=== PATIENT | male | born 1970 | race Caucasian/White ===

== ENCOUNTER → 2023-11-28 08:15 | Outpatient (REF) | payer BC, SELFPAY ==
[2023-11-28 10:29] LABS: Microalbumin, Random Urine 1.3 mg/dl (0.6-1.7); Microalbumin/creatinine Ratio 4.6 mg/g
[2023-11-28 11:49] LABS: ALT (SGPT) 25 U/L (0-50); AST (SGOT) 30 U/L (17-59); Albumin 4.4 g/dl (3.5-5.0); Alkaline Phosphatase 89 U/L (38-126); Blood Urea Nitrogen 15 mg/dl (9-20); Calcium 9.5 mg/dl (8.4-10.2); Carbon Dioxide 26 mmol/L (22-30); Chloride 105 mmol/L (98-107); Glucose 134 mg/dl (70-99); Sodium 139 mmol/L (135-145); Total Bilirubin 0.8 mg/dl (0.2-1.3); Total Protein 7.3 g/dl (6.3-8.2); eGFR > 60.00
[2023-11-28 12:25] LABS: Glycohemoglobin (HgbA1c) 7.1 % (4.0-5.6)
== END ==
LOC: HWLAB 08:15
PROVIDERS: ATTENDING PHYSICIAN Nurse Practitioner Family
DX: E11.9 Type 2 diabetes mellitus without complications (principal)
CPT/HCPCS: 36415; 80053; 82043; 82570; 83036

== ENCOUNTER → 2024-05-03 09:04 | Outpatient (REF) | payer BC, SELFPAY ==
[2024-05-03 11:43] LABS: % Basophils 0.3 % (0-2); % Eosinophils 1.2 % (0-6); % Immature Granulocytes 0.3 % (0-0.5); % Lymphocytes 21.9 % (20.5-51.1); % Monocytes 8.4 % (1.7-9.3); % Neutrophils 67.9 % (42.2-75.2); Absolute Eosinophils 0.1 10^3/uL (0-0.7); Absolute Lymphocytes 2.2 10^3/uL (1.2-3.4); Absolute Monocytes 0.8 10^3/uL (0.1-0.6); Absolute Neutrophils 6.8 10^3/uL (1.4-6.5); Hemoglobin 14.4 g/dL (13.0-18.0); Mean Corp Hgb Conc. 34.3 g/dL (33.0-37.0); Mean Corpuscular Hgb 27.9 pg (27.0-31.0); Mean Corpuscular Volume 81.2 fL (80.0-94.0); Nucleated Red Blood Cells % 0 % (-); Platelet Count 231 10^3/uL (130-400); Red Blood Cell Count 5.17 10^6/uL (4.70-6.10)
[2024-05-03 11:47] LABS: Blood Urea Nitrogen 18 mg/dl (9-20); Calcium 9.8 mg/dl (8.4-10.2); Carbon Dioxide 27 mmol/L (22-30); Chloride 100 mmol/L (98-107); Glucose 147 mg/dl (70-99); Potassium 4.6 mmol/L (3.5-5.1); Sodium 141 mmol/L (135-145); eGFR > 60.00
[2024-05-03 11:55] LABS: Erythrocyte Sed Rate 28 mm/hour (0-20)
== END ==
LOC: HWLAB 09:04
PROVIDERS: ATTENDING PHYSICIAN Student in an Organized Health Care Education/Training Program; FAMILY PHYSICIAN Nurse Practitioner Family
DX: A69.20 Lyme disease, unspecified (principal)
CPT/HCPCS: 36415; 80048; 85025; 85652; 86140; 86618

== ENCOUNTER 2024-05-06 21:02 | Inpatient (IN) | payer BC, SELFPAY ==
[2024-05-06 16:01] VITALS: BMI 29.8
[2024-05-06 16:03] VITALS: BP 143/86
--- NOTE | 2024-05-06 16:03 | ED.PDOC.TRB ---
ED Provider Triage
-
Patient seen by provider in Triage?: Seen in Triage
Attestation: A medical screening examination has been initiated by a qualified medical provider. Based on the assessment performed at this time, it has been determined that an emergent medical condition may exist and the patient has been informed
that further medical evaluation and possible additional diagnostic testing may be needed.
HPI: 53yoM here with atraumatic bilateral ankle/foot swelling and pain x 10 days. Also c/o bilateral wrist pain. Seen by orthopedics on Monday for the same. Sent for labs and has an MRI scheduled for next month. Here with worsening symptoms. No SOB.
GENERAL: Alert , in no apparent distress
EYE: No visual abnormalities.
NECK: Trachea midline
ENT: No visible abnormalities.
LUNGS: No acute respiratory distress
NEUROLOGICAL: Alert and oriented
SKIN: Skin intact. No visible changes.
MUSCULOSKELETAL: Moving extremities normally
PSYCH: Normal and appropriate interaction.
This is a medical evaluation conducted in person to initiate diagnostic evaluation and provide initial therapeutics. Please see further documentation by the treating clinician.
Will check basic labs and venous duplex.
[2024-05-06 16:37] LABS: % Basophils 0.3 % (0-2); % Eosinophils 1.6 % (0-6); % Immature Granulocytes 0.3 % (0-0.5); % Lymphocytes 26.5 % (20.5-51.1); % Neutrophils 62.3 % (42.2-75.2); Absolute Eosinophils 0.1 10^3/uL (0-0.7); Absolute Lymphocytes 2.3 10^3/uL (1.2-3.4); Absolute Monocytes 0.8 10^3/uL (0.1-0.6); Absolute Neutrophils 5.4 10^3/uL (1.4-6.5); Hematocrit 37.8 % (39.0-52.0); Hemoglobin 13.1 g/dL (13.0-18.0); Mean Corp Hgb Conc. 34.7 g/dL (33.0-37.0); Mean Corpuscular Hgb 28.5 pg (27.0-31.0); Mean Corpuscular Volume 82.2 fL (80.0-94.0); Mean Platelet Volume 9.6 fL (7.4-10.4); Nucleated Red Blood Cells % 0 % (-); Platelet Count 254 10^3/uL (130-400); Red Cell Dist. Width 13.2 % (11.5-14.5); White Blood Cell Count 8.7 10^3/uL (4.8-10.8)
[2024-05-06 16:47] LABS: ALT (SGPT) 76 U/L (0-50); AST (SGOT) 70 U/L (17-59); Albumin 4.4 g/dl (3.5-5.0); Alkaline Phosphatase 183 U/L (38-126); Blood Urea Nitrogen 18 mg/dl (9-20); Calcium 9.5 mg/dl (8.4-10.2); Carbon Dioxide 28 mmol/L (22-30); Chloride 100 mmol/L (98-107); Glucose 113 mg/dl (70-99); Potassium 4.3 mmol/L (3.5-5.1); Sodium 141 mmol/L (135-145); Total Bilirubin 0.5 mg/dl (0.2-1.3); Total Protein 7.5 g/dl (6.3-8.2); eGFR > 60.00
--- NOTE | 2024-05-06 19:55 | ED.GENMED ---
History of Present Illness
General
Chief Complaint: Swelling
Source: patient
Exam Limitations: none
Time Seen by Provider: 05/06/24 18:32
History of Present Illness
History of Present Illness:
This is a 53 year old male that comes in with c/o fever and pain in both feet. States that he started a few days ago with pain in both feet. States that the pain started to go up into the ankles and he started with swelling. States that the Right is
larger then the left. States that he went to a Foot and ankle specialist, Dr. Blackwell on Monday and he was given Doxycycline and Tramadol. States that this is not helping. States that now he has a fever. States that he is slightly nauseated , has
chills with the fever, and a headache with slight Dizziness. Patient states that he feels this is from not eating. Denies any chest pain, SOB, abd pain, vomiting, diarrhea, urinary burning.
Past History
Past History
ED Past Medical History: Hypercholesterolemia and NIDDM; Negative HTN
ED Past Surgical History: None
Social History
Tobacco: Non-smoker
Alcohol: Occasional
Personal:
Living: with family
Review of Systems
Review of Systems
All Other Systems: ROS reviewed and negative except as documented in HPI and ROS
Constitutional: Reports fever and chills
EENT: Reports no symptoms
Respiratory: Reports no symptoms; Denies cough or trouble breathing
Cardiac: Reports no symptoms; Denies chest pain
ABD/GI: Reports nausea; Denies abdominal pain, vomiting or diarrhea
: Reports no symptoms; Denies dysuria, frequency or urgency
Musculoskeletal: Reports other (Bilateral foot pain into ankles. )
Skin: Reports other (Redness ankles and left leg)
Neurological: Reports dizzy (Slight) and headache
Psychiatric: Reports no symptoms
Phy Exam
General Physical Exam
General Presentation: no apparent distress
General age: appears stated age
General Skin: warm and dry
General Habitus: normal
General Mental: alert
General Hydration: dry mucous membranes
ENT Exam
ENT Exam: TM's normal, pharynx normal and neck supple
Eye Exam
Eye Exam: EOMI
Cardiovascular Exam
Cardiovascular Exam: regular rate/rhythm, no murmur and normal peripheral pulses
Pulmonary Exam
Pulmonary Exam: lungs clear, no respiratory distress, no rales, chest non tender, no crackles, no rhonchi, no wheezing and no cough
Gastrointestinal Exam
Gastrointestinal Exam: normal bowel sounds, non tender, soft, no organomegaly, no pulsatile mass and non distended
Musculoskeletal Exam
Musculoskeletal Exam: full ROM and edema (Slight swelling nonpitting)
Skin Exam
Skin Exam: normal color, warm/dry, no petechia and redness (Redness of the medial ankles and left lateral leg with increased warmth)
Psychiatric Exam
Psychiatric Exam: normal mood/affect
Scores
Heart Failure Risk
Heart Failure Risk Score: Not Applicable
Course
Orders/Labs/Results
Orders:
Orders
05/06/24 Dinner
2000 calorie (17 carb) Diabetic
At Your Request: Full Participation
05/06/24 16:13
US Periph Venous LOWER Ext Vinicius Urgent
Comment:
Reason For Exam: swelling to right leg and mild swelling to left
05/06/24 16:18
CHEM 20 [Comprehensive Metabolic Panel] Urgent
Complete Blood Count/With Diff Urgent
Lyme Progressive Urgent
Comment: ADDON
Uric Acid Urgent
Comment: ADDON
05/06/24 19:58
Add On- LAB Urgent
Tests Added?: Urine acid, Lyme Titer
05/06/24 20:01
Acetaminophen [Tylenol] 1,000 mg PO NOW STA
05/06/24 20:03
0.9% Sodium Chloride 1000 ml [Nss] 1,000 ml IV BOLUS
Piperacillin/Tazo 3.375 Gram [Zosyn] 3.375 gram in 50 ml IV NOW
05/06/24 20:28
Admit/Transfer Patient As Directed
Co-Sign Provider:
Level of Care: Inpatient admission
Assign to:: Medical/Surgical
Physician / Group: Htay
Diagnosis: Cellulitis
Reason for Hospitalization: IV abx
Expected length of stay greater than two midnights?: Yes
ELOS- Estimated Length of Stay in days: 3
I certify the patient meets the requirements for IP care: Yes
05/06/24 20:29
Code Status As Directed
Resuscitation Status: Full Code
PRN Pain Medication Management As Directed
May give lesser potent ordered pain med per pt: Yes
preference::
Protocol:: Medication orders for pain may be administered in a
manner that supports deferring to patient preference
when the pt is:
- Requesting an ordered lesser potent pain medication.
Least to most potent pain medications are defined
as: acetaminophen < NSAID < tramadol < opioids
(morphine, oxycodone, hydromorphone).
- Requesting a lesser dose of the same medication IF
ORDERED.
- Requesting a less intrusive route of administration
if both routes are prescribed by the provider (PO <
IV).
05/06/24 20:33
COVID-19 Antigen Urgent
Source: Nasal Swab
Lactic Acid Urgent
Blood Culture Urgent
NICKY Source: Blood/Venous
Specimen Description:
Blood Culture Urgent
NICKY Source: Blood/Venous
Specimen Description:
05/06/24 20:40
MRSA Screen Routine
NICKY Source: Nose
Specimen Description:
05/06/24 22:32
0.9% Sodium Chloride 1000 ml [Nss] 1,000 ml IV 60 mls/hr
Acetaminophen [Tylenol] 650 mg PO Q6HPRN PRN
Dextrose 50%-Water [Dextrose 50% Syringe] 12.5 grams IV [id number] PRN
Glucagon [GlucaGen] 1 mg IM PRN PRN
05/06/24 22:32
Activity As Directed
Activity Level: Out of Bed-Early Mobility
Bedside Glucose Monitoring As Directed
Frequency: AC&HS
Additional Instructions:: Change to q6h if pt on TPN, tube feeding or not eating
Intake/ Output As Directed
Frequency: Per unit guidelines
Vital Signs As Directed
Frequency: Per unit guidelines
DX Deep Vein Thrombosis Video Routine
05/07/24 00:00
CeFAZolin 2 GRAM [Ancef] 2 grams in 10 ml IV Q8H
05/07/24 06:00
Complete Blood Count/No Diff IN AM
Comprehensive Metabolic Panel IN AM
Glycohemoglobin (HgbA1c) IN AM
05/07/24 07:30
Insulin Aspart Corrective Low [Novolog Flexpen-Low Resistance] See Protocol SC AC
05/07/24 18:00
Enoxaparin Sodium [Lovenox] 40 mg SC QPM
Abnormal Lab Results
05/06/24
16:18
RBC 4.60 L 10^6/uL
(4.70-6.10)
Hct 37.8 L %
(39.0-52.0)
Absolute Monos (auto) 0.8 H 10^3/uL
(0.1-0.6)
Glucose 113 H mg/dl
(70-99)
AST 70 H U/L
(17-59)
ALT 76 H U/L
(0-50)
Alkaline Phosphatase 183 H U/L
(38-126)
05/06/24 16:18
05/06/24 16:18
Hyperglycemia, AST/ALT elevation. Alk phos elevation. Lactic acid normal at 1.2
Vital Signs
Initial and Last Documented VS:
Initial Vital Signs
Temp Pulse Resp BP Pulse Ox
100.4 F H 90 16 143/86 98
05/06/24 16:03 05/06/24 16:03 05/06/24 16:03 05/06/24 16:03 05/06/24 16:03
Last Documented Vital Signs
Temp Pulse Resp BP Pulse Ox
98.6 F 81 18 113/70 98
05/06/24 22:46 05/06/24 22:46 05/06/24 22:46 05/06/24 22:46 05/06/24 22:46
MDM/Problems Addressed
Differential Diagnosis Includes:
Cellulitis, Lyme disease, GOUT,
MDM/Problems Addressed:
This is a 53 year old male that comes in with c/o fever and bilateral foot and ankle pain. States that this started last week and he saw a foot and ankle specialist on Monday. Patient was put on Doxycycline and Tramadol for pain but states that he
know has a fever.
Will get labs, US and admit patient.
Chronic conditions affecting care: DM
Acute Exacerbation and/or Progression of Chronic Illness:
NA
*Radiology
Radiology exam reviewed: radiology read reviewed (US=No evidence of deep venous thrombosis of the lower extremities bilaterally. )
*Pulse Oximetry
Patient hypoxic: no
*EKG
Interpreted by ED Provider?: NA
Rate: EKG- N/A
*Testing Specialist Interpretation
Rate: Testing Specialist- N/A
*Critical Care Note
Total Time (30-74mins, 75-104mins- exclusive of procedures): Not Applicable
ED Attending Note
-
Portions of this chart may have been created with voice recognition software.� Occasional wrong word or��sound alike� substitutions may have occurred due to the inherent limitations of voice recognition software.
Discharge Plan
Departure
Patient Disposition: Admit
Date of Disposition: 05/06/24
Time of Disposition: 20:11
Admit to: Med/Surg
Presentation/result/management discussed w/ accepting MD/DO: Hospitalist
Patient with high blood pressure during this ER visit?: Yes
Condition: Good
Discharge Problem:
Cellulitis ankles and left leg
Interventions
Interventions:
*Risk Screen - Suicide Last Done: 05/06/24 16:03
*General Assessment Last Done: 05/06/24 18:30
*Neglect/Abuse Screening Last Done: 05/06/24 16:03
ED- Fall Risk Assessment Last Done: 05/06/24 18:30
*ED COVID-19 Vaccine History Last Done: 05/06/24 18:30
*Nursing Disposition Last Done: 05/06/24 22:27
ED- Cardiac Assessment Last Done: 05/06/24 18:30
ED- Pulmonary Assessment Last Done: 05/06/24 18:30
ED-Skin Assessment Last Done: 05/06/24 18:30
Discharge Date and Time
Discharge Date/Time: 05/06/24 22:27
[2024-05-06 20:08] VITALS: BP 119/71
--- NOTE | 2024-05-06 20:32 | HPS.HSE ---
Family Physician
-
Family Physician: PRAVIN Arriaza
Chief Complaint
-
Lower Extremity Pain and Swelling
History of Present Illness
Patient is a 53 y/o male past medical history of hyperlipidemia and diabetes mellitus who presents with pain and swelling of the lower extremities. Patient reports about 10 days ago he started with pain in the bottoms of his feet when he got out of
bed in the morning. Patient notes he then began with increasing redness and swelling of the lower extremities. He also reports associated fevers, sweats and chills. He was started on doxycycline on Monday and has not noticed much change, and
notes the redness appears to be spreading. He denies any prior history of cellulitis.
Medical History
Past Medical History
Past Medical History: Reports Other
Additional Past Medical History:
Diabetes Mellitus, Type II
Hyperlipidemia
Past Surgical History: Reports None
Social History
Tobacco: Non-smoker
Alcohol: Other (Rare alcohol)
Family History
Family History: Not pertinent
Allergies / Home Medications
Allergies reflects when Allergies were last updated in [facility].
Home Medications with original date entered in [facility]
Allergy/Medication List:
Allergies
Allergy/AdvReac Type Severity Reaction Status Date / Time
NKA - No Known Allergies Allergy Unknown Uncoded 05/06/24 16:12
Home Medications
acetaminophen 325 mg tablet (Tylenol) 650 mg PO Q6HPRN PRN mild pain 05/06/24
doxycycline hyclate 100 mg capsule 100 mg PO BID 05/06/24
metformin 500 mg tablet,extended release 24 hr 1,000 mg PO BID 05/06/24
rosuvastatin 10 mg tablet 10 mg PO HS 05/06/24
tramadol 50 mg tablet 50 mg PO Q8HPRN PRN moderate pain 05/06/24
Review of Systems
-
A 12 point ROS was completed and negative except as noted: Yes
Constitutional: Reports Fever and Chills
Respiratory: Denies Cough or Trouble Breathing
Cardiac: Denies Chest Pain or Palpitations
Abdomen/GI: Denies Abdominal Pain, Nausea or Vomiting
Physical Exam
Vital Signs
Vital Signs
Temp Pulse Resp BP Pulse Ox
102.1 F H 91 18 119/71 100
05/06/24 20:08 05/06/24 20:08 05/06/24 20:08 05/06/24 20:08 05/06/24 20:08
Physical Exam
General: Comfortable and Conversant
HEENT: NormoCephalic and Moist mucous membranes
Respiratory: Clear and Non Labored Respirations
Cardiac: S1/S2 and Regular Rhythm
GI: Soft and Non Tender
Rectal: Deferred by Provider
Musculoskeletal: No Clubbing, No Cyanosis and Other (Edema bilateral ankles, right greater than left)
Skin: Other (Moderate erythema right medial malleolus extending up right pinon; Mild erythema left medial malleolus )
Neuro: Awake, Alert, Oriented and Nonfocal/grossly intact
Psych: Calm
Laboratory Results
-
05/06/24 16:18
05/06/24 16:18
Laboratory Results
Total Bilirubin 0.5 mg/dl (0.2-1.3) 05/06/24 16:18
AST 70 U/L (17-59) H 05/06/24 16:18
ALT 76 U/L (0-50) H 05/06/24 16:18
Alkaline Phosphatase 183 U/L (38-126) H 05/06/24 16:18
Data Reviewed
-
Lab Data: Labs Reviewed by me
Impression/Plan
-
Lower Extremity Cellulitis, Right greater than Left - Failed Outpatient Antibiotics
-Continue Ancef
-Check blood cultures and MRSA screen
Abnormal LFTs, suspect drug related
-Hold Crestor
-Antibiotics changed from doxycycline to Ancef
Diabetes Mellitus, Type II
-Hold metformin
-Check HgbA1c
-Monitor sugars and continue coverage insulin
Hyperlipidemia
-Hold Crestor
DVT proph: Lovenox
Code Status: Full Code
--- NOTE | 2024-05-06 20:39 | W.PN.UPDATE ---
Update Note
Progress Note Update
This note serves as an addendum to the H&P by registered diet technician KERI Marcella MARTINEZ
HPI
53M with Diabetic T2 , HX HTN, HLD seen at ER for evalauation of fever at both leg pain.
- onset is few days ago with pain in both feet with pain radiated to the ankles followed by b/l swelling
- reports Right is larger then the left.
- seen by Vp Dr. Blackwell on Monday and he was given Doxycycline and Tramado but no improvement
- Today new onset of fever. At ER T 102.1
- Hemodynamically stable
- Associated with mildly nauseated, chills with the fever, and a headache
- Reports taking Tyelnol , NSAIDs, Tramadol
- Denies any chest pain, SOB, abd pain, vomiting, diarrhea, urinary burning.
PHX; see above
Reviewed VS: T 102.1 HR 90 BP 120/71
PE
Gen: Not toxic
HEENT: anicteric
Neck: supple
Lungs: CTA
Cor: RRR S1 S2
Abdomen:
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
MS: Redness of the medial ankles and left lateral leg with increased warmth)
Psych: anxious
Data
WCC 8.7
eGFR > 60
AST 70
ALT 76
AKP 183
Pending Covid Ag
BCx times 2 sent
US Periph Venous LOWER Ext Vinicius
No evidence of deep venous thrombosis of the lower extremities bilaterally.
04/03/23 ECHO
Normal biventricular size and systolic function without regional wall motion abnormality. Estimated LVEF 60-65%.
No significant valve disease.
No prior study available for comparison.
NO PRIOR DH and hospitalist admission:
ASSESSMENT & PLAN
Cellulitis Rt Falguni of Diabetics
Associated fever without leucocytosis suspect incipient clinical sepsis
- F/U BCx
- check MRSA screen
- Empiric IV Cefazolin in place of Doxy
- Gentle IV NS
- can have Tylenol PRN for fever
- F/U Temp and WCC
Abnormal elevated transaminitis
- HX NOT suggestive ETOH use disorder
- DDX: Drug induced liver injury due to sepsis vs Fatty liver
- Avoid NSAIDs, Tramadol
- Trend LFTs
- held Crestor
T2DM - last A1C 7.1%
- check A1C
- Held Metformin
- add ISS low
HX HTN: Not on Meds
- Observe BP while inpatient
HX HLD
- Held Crestor due to Abn LFTs
DVT Px: LMWH
Code: Full
IP MS
[2024-05-06] MEDS: TYLENOL 1000 MG PO (20:40)
[2024-05-06] MEDS: NSS 1000 IV ×2 (20:41→23:03)
[2024-05-06] MEDS: ZOSYN 50 IV (20:41)
[2024-05-06 21:00] LABS: Uric Acid 3.5 mg/dl (3.5-8.5)
[2024-05-06 21:01] LABS: Lactic Acid 1.2 mmol/L (0.7-2.0)
[2024-05-06 21:04] LABS: COVID-19 Antigen Negative (Negative)
[2024-05-06 22:46] VITALS: BP 113/70; BMI 30.8
[2024-05-06 23:48] LABS: Glucose - Point of Care 212 mg/dl (70-99)
[2024-05-06] MEDS: ANCEF 10 IV (23:51)
[2024-05-07] MEDS: TYLENOL 650 MG PO ×2 (02:57→09:13)
[2024-05-07 07:33] VITALS: BP 116/70
[2024-05-07] MEDS: ANCEF 10 IV ×2 (07:40→17:52)
[2024-05-07] MEDS: NOVOLOG FLEXPEN-LOW RESISTANCE SC ×2 (07:43→12:49)
[2024-05-07 07:44] LABS: Glucose - Point of Care 120 mg/dl (70-99)
[2024-05-07 07:54] LABS: Hematocrit 33.9 % (39.0-52.0); Hemoglobin 11.6 g/dL (13.0-18.0); Mean Corp Hgb Conc. 34.2 g/dL (33.0-37.0); Mean Corpuscular Hgb 28.4 pg (27.0-31.0); Mean Corpuscular Volume 82.9 fL (80.0-94.0); Mean Platelet Volume 9.9 fL (7.4-10.4); Platelet Count 227 10^3/uL (130-400); Red Blood Cell Count 4.09 10^6/uL (4.70-6.10); Red Cell Dist. Width 13.3 % (11.5-14.5); White Blood Cell Count 6.3 10^3/uL (4.8-10.8)
[2024-05-07 08:28] LABS: ALT (SGPT) 55 U/L (0-50); AST (SGOT) 45 U/L (17-59); Albumin 3.6 g/dl (3.5-5.0); Alkaline Phosphatase 149 U/L (38-126); Blood Urea Nitrogen 16 mg/dl (9-20); Calcium 8.7 mg/dl (8.4-10.2); Carbon Dioxide 28 mmol/L (22-30); Chloride 103 mmol/L (98-107); Estimated Creatinine Clearance 92 ml/min; Glucose 111 mg/dl (70-99); Potassium 4.6 mmol/L (3.5-5.1); Sodium 142 mmol/L (135-145); Total Bilirubin 0.6 mg/dl (0.2-1.3); Total Protein 6.4 g/dl (6.3-8.2); eGFR > 60.00
[2024-05-07 09:38] LABS: Glycohemoglobin (HgbA1c) 6.9 % (4.0-5.6)
--- NOTE | 2024-05-07 10:35 | CM ---
Pt seen at bedside. Pt confirmed that he lives w/ his and four children in a split level home.
Pt does not use any DME, no h/x of SNF/HC.
Pt denies food/housing/transportation insecurities
Pt confirmed that his will transport at d/c.
CM will cont. to follow for additional updates/recommendations
Plan: Anticipated home with no needs
--- NOTE | 2024-05-07 10:45 | W.PN.HOSP.TC ---
Today's Communication/Plan
-
see plan
Assessment / Plan
Assessment / Plan
53M with hx DM 2, HTN, HLD presents to the ER with b/l LE pain and swelling with failure to respond to Doxycycline (prescribed 4 days prior). Febrile to 102.1 in ER.
LE US:
IMPRESSION: No evidence of deep venous thrombosis of the lower extremities bilaterally.
Lower Extremity Cellulitis, Right greater than Left - Failed Outpatient Antibiotics
-Continue Ancef
-F/U blood cultures
-touching base with Dr. Blackwell who will see patient
-LE elevation
Abnormal LFTs, suspect drug related
-Hold Crestor
-Antibiotics changed from doxycycline to Ancef
-monitor liver enzymems - improving today
Diabetes Mellitus, Type II
-Hold metformin
-Check HgbA1c
-Monitor sugars and continue coverage insulin
Hyperlipidemia
-Hold Crestor
DVT proph: Lovenox
Code Status: Full Code
Anticipated Discharge: 24 - 48 hours
Subjective/Interval History
-
Date of Service: May 07, 2024
less pain at rest
pain with ambulating
has some swelling
Objective Data
-
Labs:
Laboratory Results
05/07/24
06:06
WBC 6.3
Hgb 11.6 L
Hct 33.9 L
Plt Count 227
Sodium 142
Potassium 4.6
Chloride 103
Carbon Dioxide 28
BUN 16
Creatinine 1.0
Glucose 111 H
Calcium 8.7
Total Bilirubin 0.6
AST 45
ALT 55 H
Alkaline Phosphatase 149 H
Vital Signs:
Vital Signs
Temp Pulse Resp BP Pulse Ox
97.8 F 65 19 116/70 97
05/07/24 07:33 05/07/24 07:33 05/07/24 07:33 05/07/24 07:33 05/07/24 07:33
I&O
05/06/24 05/07/24 05/08/24
06:59 06:59 06:59
Intake Total 120 / 120
Balance 120 / 120
Review of Systems
-
History Source: Patient
All other systems: Reviewed and negative
Physical Exam
-
General: No Apparent Distress
HEENT: PERRLA
Respiratory: Clear to Auscultation; Negative Wheezes
Cardiac: Regular Rhythm and S1/S2
GI: Soft and Nontender
Musculoskeletal: Other (b/l LE ankle swelling R > L with mild erythema; 5/5 strength ankle flexion and extension )
Neuro: AO x 3
Psych: Agitated
Data Reviewed
-
Diagnostic Radiology: Report Reviewed by me
Labs: Labs Reviewed by me
[2024-05-07 11:37] LABS: Glucose - Point of Care 161 mg/dl (70-99)
[2024-05-07] MEDS: NOVOLOG FLEXPEN-LOW RESISTANCE 1 UNITS SC ×2 (14:37→17:52)
[2024-05-07] MEDS: NSS 1000 IV (14:38)
[2024-05-07 15:19] VITALS: BP 117/75
--- NOTE | 2024-05-07 16:41 | W.PN.UPDATE ---
Update Note
Progress Note Update
Patient seen at bedside B/L Lower extremity cellulitis
-Atypical cellulitis
-Obtain MSK US bilateral lower extremity to rule out collection, discussed MRI would be better study however testing currently down
-Recommend ID consult, possible Rheumatology consult due to poly joint arthralgia
[2024-05-07] MEDS: LOVENOX 40 MG SC (17:52)
[2024-05-07 18:39] LABS: Glucose - Point of Care 130 mg/dl (70-99)
[2024-05-07 21:35] LABS: Glucose - Point of Care 160 mg/dl (70-99)
[2024-05-07 23:20] VITALS: BP 111/76
--- NOTE | 2024-05-08 00:16 | W.PN.UPDATE ---
Update Note
Progress Note Update
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 Patient seen, very upset, states he is getting worse with his symptoms from the time he got admitted, upset he is not given proper information, and that MRI is not done as urgent here. Symptoms
evaluated, reports increasing headache 10/0, chills, neck pain and increase in b/l LE pain. Afebrile, 98.6, 111/70, 77, 97% RA. Information provided based on the provider notes. Will order pain medication, and will address patient concerns to
attending.
[2024-05-08] MEDS: ULTRAM 50 MG PO (00:23)
[2024-05-08] MEDS: ANCEF 10 IV ×4 (00:23→23:26)
[2024-05-08] MEDS: DILAUDID 0.25 MG IV (02:40)
[2024-05-08] MEDS: FLUSH (NSS) 2 FLUSH IV (02:40)
[2024-05-08 06:15] LABS: Hematocrit 38.3 % (39.0-52.0); Hemoglobin 13.1 g/dL (13.0-18.0); Mean Corp Hgb Conc. 34.2 g/dL (33.0-37.0); Mean Corpuscular Volume 81.8 fL (80.0-94.0); Mean Platelet Volume 9.4 fL (7.4-10.4); Platelet Count 277 10^3/uL (130-400); Red Blood Cell Count 4.68 10^6/uL (4.70-6.10); Red Cell Dist. Width 13.2 % (11.5-14.5); White Blood Cell Count 9.1 10^3/uL (4.8-10.8)
[2024-05-08 06:36] LABS: ALT (SGPT) 66 U/L (0-50); AST (SGOT) 62 U/L (17-59); Albumin 4.2 g/dl (3.5-5.0); Alkaline Phosphatase 198 U/L (38-126); Blood Urea Nitrogen 17 mg/dl (9-20); Calcium 9.7 mg/dl (8.4-10.2); Carbon Dioxide 27 mmol/L (22-30); Chloride 101 mmol/L (98-107); Estimated Creatinine Clearance 92 ml/min; Glucose 138 mg/dl (70-99); Potassium 4.7 mmol/L (3.5-5.1); Sodium 141 mmol/L (135-145); Total Bilirubin 0.5 mg/dl (0.2-1.3); Total Protein 7.1 g/dl (6.3-8.2); eGFR > 60.00
[2024-05-08 07:50] VITALS: BP 100/65
[2024-05-08 07:56] LABS: Glucose - Point of Care 146 mg/dl (70-99)
[2024-05-08] MEDS: NOVOLOG FLEXPEN-LOW RESISTANCE SC ×3 (08:12→16:44)
--- NOTE | 2024-05-08 08:41 | W.PN.UPDATE ---
Update Note
Progress Note Update
Mr. Mills is resting comfortably in bed this morning. He does endorse significant frustration regarding his case and lack of communication. We had a long discussion, and I explained that we are waiting further imaging. I assured him we will
keep him updated once we have more information as to when he will be able to undergo musculoskeletal ultrasound of both lower extremities. He reports his pain is waxing and waning, but was very severe overnight. He states he is unable to bear
weight on either of his legs.
Directed exam of bilateral lower extremities reveal mild edema and hue of erythema about both lower legs. Mild tenderness to palpation about the anterolateral aspect of the left pinon. Neurovascularly intact bilaterally.
Bilateral atypical lower extremity cellulitis
-Obtain MSK US bilateral lower extremity to rule out collection, discussed MRI would be better study however testing currently down.
-Recommend ID consult, possible Rheumatology consult due to poly joint arthralgia.
-Continue abx per primary. Currently Ancef.
-Will continue to follow along.
--- NOTE | 2024-05-08 11:04 | PHA.VAN.IN ---
Assessment
- Assessment
Renal Function: Appears similar to baseline
Concomitant Antimicrobials: cefazolin
AUC Dosing Plan
- Dosing Variables
Dosing Weight (kg): 89
Dosing CrCl (ml/min): 92
Vd coefficient (L/kg): 0.7
- Empiric Dosing
Initial / Loading Dose: 2000mg - administration pending
Maintenance Regimen: Vanc 1250mg Q12H starting 05/09 06
Estimated AUC (mcg*h/mL): 527
Estimated Peak (mcg*h/mL): 32.3
Estimated Trough (mcg/ml): 13.8
Estimated Half Life (H): 8.6
- Monitoring
No levels ordered at this time: consider levels in next few days
Pharmacokinetics Vancomycin I
- -
Patient Age: 53
Patient Sex: Male
Vancomycin Day #: 1
Indication: Skin And Soft Tissue
Requesting Provider: Dr. Soto
Pertinent Antimicrobial Allergies:
NKDA
Height / Weight:
Height 5 ft 7 in
Actual Weight 89.018 kg
Pertinent Past Medical History: BMI ~31, DM II
- Vital Signs / Lab Results
Temp Pulse Resp BP Pulse Ox
97.9 F 57 16 100/65 96
05/08/24 07:50 05/08/24 07:50 05/08/24 07:50 05/08/24 07:50 05/08/24 08:00
Lab Results - Hematology
05/06/24 05/07/24 05/08/24
16:18 06:06 05:29
WBC 8.7 6.3 9.1
Lab Results - Chemistry
05/06/24 05/07/24 05/08/24
16:18 06:06 05:29
BUN 18 16 17
Creatinine 0.9 1.0 1.0
Estimated Creat Clear 92 92
Albumin 4.4 3.6 4.2
05/06/24
20:33
Lactic Acid 1.2
Microbiology Results
05/06/24 20:40 MRSA Screen - Final
Nose No Methicillin Resistant Staphylococcus aureus isolated.
05/06/24 20:33 Blood Culture - Preliminary
Blood/Venous No Growth in 24 hours- Final report to follow
05/06/24 20:33 Blood Culture - Preliminary
Blood/Venous No Growth in 24 hours- Final report to follow
--- NOTE | 2024-05-08 11:10 | W.PN.HOSP.TC ---
Today's Communication/Plan
-
see plan
Assessment / Plan
Assessment / Plan
53M with hx DM 2, HTN, HLD presents to the ER with b/l LE pain and swelling with failure to respond to Doxycycline (prescribed 4 days prior). Febrile to 102.1 in ER.
LE US:
IMPRESSION: No evidence of deep venous thrombosis of the lower extremities bilaterally.
Lower Extremity Cellulitis, Right greater than Left - Failed Outpatient Antibiotics
-Continue Ancef
-add on IV Vanc - concern for abscess today
-LE US
-discussed with Dr. Blackwell, keep NPO until US results
-ID consult
-LE elevation
Abnormal LFTs, suspect drug related
-Hold Crestor
-Antibiotics changed from doxycycline to Ancef
-monitor liver enzymes, consider US tomorrow if remains elevated - patient without pain
Diabetes Mellitus, Type II
-Hold metformin
-Check HgbA1c
-Monitor sugars and continue coverage insulin
Hyperlipidemia
-Hold Crestor
DVT proph: Lovenox
Code Status: Full Code
Anticipated Discharge: 24 - 48 hours
Subjective/Interval History
-
Date of Service: May 08, 2024
increasing areas of redness/swelling/pain
pain last night
felt feverish but no fevers
Objective Data
-
Labs:
Laboratory Results
05/08/24
05:29
WBC 9.1
Hgb 13.1
Hct 38.3 L
Plt Count 277 D
Sodium 141
Potassium 4.7
Chloride 101
Carbon Dioxide 27
BUN 17
Creatinine 1.0
Glucose 138 H
Calcium 9.7
Total Bilirubin 0.5
AST 62 H
ALT 66 H
Alkaline Phosphatase 198 H
Vital Signs:
Vital Signs
Temp Pulse Resp BP Pulse Ox
97.9 F 57 16 100/65 96
05/08/24 07:50 05/08/24 07:50 05/08/24 07:50 05/08/24 07:50 05/08/24 08:00
I&O
05/07/24 05/08/24 05/09/24
06:59 06:59 06:59
Intake Total 120 / 120 1140 / 1140
Balance 120 / 120 1140 / 1140
Review of Systems
-
History Source: Patient
All other systems: Reviewed and negative
Physical Exam
-
General: No Apparent Distress
HEENT: PERRLA
Respiratory: Clear to Auscultation; Negative Wheezes
Cardiac: Regular Rhythm and S1/S2
GI: Soft and Nontender
Musculoskeletal: Other (right posterior ankle erythema/swelling/warmth with area of induration more evident on today's exam; also on left posterior calf )
Neuro: AO x 3
Psych: Agitated
Data Reviewed
-
Diagnostic Radiology: Report Reviewed by me
[2024-05-08] MEDS: NSS 1000 IV ×2 (11:20→20:30)
--- NOTE | 2024-05-08 11:32 | PN.CDI ---
CDI
- -
CDI:
Physician Documentation Request
Admit Date: 05/06/24 21:02
Dear Doctor Charles,
Please review the following and provide your response in the progress notes.
Clinical Indicators:
The diagnosis of sepsis was documented on 05/06 H&P update note but is not consistently noted in subsequent documentation.
- 05/06 H&P Update note ' Cellulitis Rt Falguni of Diabetics...Associated fever without leucocytosis suspect incipient clinical sepsis'
- / PN 'Lower Extremity Cellulitis'
- On admission: Tmax 102.1, HR 90s
- IV abx Ancef, Zosyn
- 4L IVF given
Please clarify the following:
____ - Sepsis was present on admission and is now resolved.
____ - Sepsis was present on admission and is still being monitored, evaluated or treated
____ - Sepsis was ruled out
____ - Sepsis is still a likely, suspected, probable diagnosis
____ - Other
Use of terms such as suspected, likely, concern for, or probable (associated with a specific diagnosis that is being evaluated, monitored, or treated as if it exists) are acceptable and can be coded in the inpatient setting, when documented at the
time of discharge.
Thank you,
Sonido Nielsen RN
CDI Specialist
Please use your independent medical judgment in providing your response.
[2024-05-08 11:48] LABS: Glucose - Point of Care 111 mg/dl (70-99)
[2024-05-08] MEDS: VANCOCIN 540 MG IV (11:53)
--- NOTE | 2024-05-08 13:55 | CON.ID ---
Addendum entered and electronically signed by Shy Calero MD 05/08/24 17:40:
I personally performed a history and physical exam of the patient and discussed management with the resident. I reviewed the resident's note and agree with the documented findings and plan of care HPI/CC with the following additions/corrections:
HPI:
Mr Mills is a 53 year old male with history of DM2 who presented here 05/06 for pain and swelling of the bilateral lower extremities and bilateral wrist swelling progressing to fevers and chills. Symptoms began 10 days prior to arrival with pain
in the bottoms of the feet and redness and swelling of both legs. He was seen in podiatry clinic with Dr Blackwell who noted a circular red lesion on the left leg - no known tick bites, he was started on doxcycycline however redness and swelling
persisted and he was referred to the ER
Since arrival here
PAST MEDICAL HISTORY:
1. Diabetes type 2.
2. Hyperlipidemia.
PAST SURGICAL HISTORY: Nonsmoker. Rare alcohol use.
FAMILY HISTORY: Not pertinent.
ALLERGIES: No known drug allergies.
HOME MEDICATIONS:
1. Tylenol.
2. Doxycycline.
3. Metformin.
4. Rosuvastatin.
5. Tramadol.
REVIEW OF SYSTEMS: 10 point ROS reviewed - negative expect as listed in HPI
Vital Signs
Vital Signs
Temp Pulse Resp BP Pulse Ox
102.1 F H 91 18 119/71 100
05/06/24 20:08 05/06/24 20:08 05/06/24 20:08 05/06/24 20:08 05/06/24 20:08
Physical Exam
General: Comfortable
Respiratory: Clear to ascultation
Cardiac: S1/S2 and Regular Rhythm
GI: Soft, nondistended and Non Tender
Musculoskeletal: Edema bilateral ankles, right greater than left
Skin: rash: erythema of the right medial malleolus
Psych: Calm
Labs:
reviewed most notably:
wbc 9.1
hgb 13
plt 277
no L shift on arrival
cr 1.0
a1c 6.9
t bili 0.5
ast 62
alt 66
alk phos 198
US of lower extremity:
Rt: There is a 1.6 x 0.2 x 0.8 cm small fluid collection within the distal medial soft tissues along the right ankle. There is cutaneous thickening which may represent superficial cellulitis.
Lf: No discrete abscess or drainable fluid collection. There is skin thickening within the visualized calf, possible superficial cellulitis.
11/27 colonized with MSSA
05/06 blood cultures x2 no growth to date
05/06 mrsa screen negative
A&P
53 year old male with systemic symptoms, neuropathy, and progressive rash
- agree lyme on the differential
- lyme serology sent
- restart doxycycline
- rash is nonpurulent - continue cefazolin no need for vancomycin
- leg elevated, rash outlined
- follow clinically
Original Note:
Consultation
-
Date/Time Consultation Requested: 05/08/24, 11:07 AM
Date/Time Consultation Performed: 05/08/24-1:56 PM
Requesting Provider: Fatuma Soto MD
Performing Provider: Sophia Denny MD
Reason for Consultation: Cellulitis
Chief Complaint / Past History
History of Present Illness
53 yo male with PMHx significant for diabetes and hyperlipidemia presents to the hospital evaluation of fever and swelling, pain of the lower extremities. His symptoms initially started with pain in the bilateral feet about 10 days prior to the ER
visit his pain was sharp and burning, initially present when he woke up in the morning and got better as he takes few steps, was about 4/10 in intensity and nonradiating. By his pain started worsening, as if his legs were on fire, 8/10 in
intensity, radiating into his ankle and posterior calfs and the pain improved with rest. On 05/03 in the morning he noticed swelling in his posterior calf which prompted him to see podiatry and he was started on doxycycline and tramadol. Despite
taking doxycycline he felt the pain in his bilateral knee joints as well as the wrist joints and subjective fevers which prompted an ER visit on 05/06. Patient denies having any pets, being in [place], and having allergies. He also denies having
chest pain, palpitations, shortness of breath, lightheadedness, dizziness, vomiting, diarrhea, dysuria, urinary frequency, abdominal pain.
Currently he reports of having subjective fevers, occasional nausea, pounding and throbbing headaches, difficulty walking.
Upon arrival to the hospital, patient was found to be febrile-100.4, 100.1 with elevated blood pressure, no tachycardia or tachypnea. His laboratory evaluation-WBC count of 8.7 on 05/06/2020 4-9.1 on 05/08/2024, hemoglobin of 13.1 upon admission
continued to remain stable, platelet count of 254 upon admission. Absolute monocyte count -0.8, HbA1c of 6.9, normal electrolytes, serum creatinine-1.0 on 05/06/2024 that continued to remain stable as of 05/08/2024, elevated transaminases with AST
70, ALT 76, alkaline phosphatase 183. He received 1 dose of Zosyn in the ER before he was admitted, and was started on cefazolin upon admission. Dr. Blackwell, his machine splitter was consulted and noted no improvement in patient's legs, wanted to get an
MRI but had an ultrasound done. Patient got peripheral vascular ultrasound-no evidence for DVT found on it and then patient received ultrasound of his bilateral legs which showed evidence for superficial cellulitis.
As of today he was switched to vancomycin.
Past History
Past Medical History: Other (Diabetes Mellitus, Type II Hyperlipidemia)
Past Surgical History: Other (None)
Allergy History:
No Known Allergies Allergy (Unverified 05/08/24 11:08)
Medications Reviewed: Yes
Social History
Tobacco: Non-Smoker
Alcohol: Occasional
Drug: None
Personal:
Living: With Family
Employment: Employed ([employer]
Family History
Family History: Not Pertinent
Review of Systems
Review of Systems
General: Fever and Chills
Cardiovascular: Negative Chest Pain, Dyspnea or Palpitations
Respiratory: Negative Dyspnea, Cough or Sputum Production
Gasteroenterology: Nausea; Negative Vomiting
Genital / Urological: Negative Dysuria or Flank Pain
Endocrine: Negative Weight Change, Weakness or Fatigue
Musculoskeletal: Joint Pain and Arthralgias
Skin / Hair / Nails: Urticaria
Psychological: Depression
Vital Signs
Temp Pulse Resp BP Pulse Ox
97.9 F 57 16 100/65 96
05/08/24 07:50 05/08/24 07:50 05/08/24 07:50 05/08/24 07:50 05/08/24 08:00
Physical Exam
Physical Exam
Constitutional: Comfortable
Pharynx: Benign
Oral: No Ulcers
Cardiovascular: Regular Rate and S1/S2; Negative Murmur, Rub or Gallop
Pulmonary: Clear; Negative Wheezes, Rales or Rhonchi
Gastrointestinal: Soft, Non Tender, Non Distended and Normal Bowel Sounds
Extremities: Edema, Erythema, Pulses (Palpable dorsalis pedis and posterior tibial pulses bilaterally, 1+.) and Other (Increased edema, erythematous, edematous and warm to touch swelling of about 7 x 5 cm noted on left posterior calf just above the
ankle mortise.)
Skin: Warm and Rash (On the upper torso face and neck noted.)
Psychological: Calm
Lab / Diagnostic Study Results
05/08/24 05:29
05/08/24 05:29
Abs Immat Gran (auto) 0.0 10^3/uL (0-0.05) 05/06/24 16:18
Absolute Neuts (auto) 5.4 10^3/uL (1.4-6.5) 05/06/24 16:18
Absolute Lymphs (auto) 2.3 10^3/uL (1.2-3.4) 05/06/24 16:18
Absolute Monos (auto) 0.8 10^3/uL (0.1-0.6) H 05/06/24 16:18
Absolute Basos (auto) 0.0 10^3/uL (0-0.2) 05/06/24 16:18
Immature Gran % 0.3 % (0-0.5) 05/06/24 16:18
Neutrophils % 62.3 % (42.2-75.2) 05/06/24 16:18
Lymphocytes % 26.5 % (20.5-51.1) 05/06/24 16:18
Monocytes % 9.0 % (1.7-9.3) 05/06/24 16:18
Eosinophils % 1.6 % (0-6) 05/06/24 16:18
Basophils % 0.3 % (0-2) 05/06/24 16:18
Lactic Acid 1.2 mmol/L (0.7-2.0) 05/06/24 20:33
Microbiology Results
Micro:
05/06/24 20:40 MRSA Screen - Final
Nose No Methicillin Resistant Staphylococcus aureus isolated.
05/06/24 20:33 Blood Culture - Preliminary
Blood/Venous No Growth in 24 hours- Final report to follow
05/06/24 20:33 Blood Culture - Preliminary
Blood/Venous No Growth in 24 hours- Final report to follow
Nonvascular lower extremity ultrasound-05/08/2024
Right side-
There is a 1.6 x 0.2 x 0.8 cm small fluid collection within the distal medial soft tissues along the right ankle. There is cutaneous thickening which may represent superficial cellulitis.
Left side-
No discrete abscess or drainable fluid collection. There is skin thickening within the visualized calf, possible superficial cellulitis.
Peripheral vascular ultrasound-05/06/2024-
No evidence for DVT.
Assessment / Plan
Assessment-
Subjective-fever, headaches, inability to bear weight on lower extremities from pain, swelling and erythema.
Objective-no spikes of fever in the ER but otherwise afebrile, blood pressure well-controlled, no tachycardia, no tachypnea. WBC count of 8.7 on 05/06/2020 4-9.1 on 05/08/2024, hemoglobin of 13.1 upon admission continued to remain stable, platelet
count of 254 upon admission. Absolute monocyte count -0.8, HbA1c of 6.9, normal electrolytes, serum creatinine-1.0 on 05/06/2024 that continued to remain stable as of 05/08/2024, elevated transaminases with AST 70, ALT 76, alkaline phosphatase 183.
Ultrasound of lower extremities and peripheral vascular ultrasound as noted above.
Plan-
Blood cultures x 2 obtained at same time showed no growth in first 24 hours.
Currently patient is on vancomycin which is discontinued and patient continues to be on cefazolin-day 3.
Obtain Lyme disease serology, Ehrlichia and Anaplasma PCR.
Obtain inflammatory markers in the am.
Start doxycycline 100 mg twice daily.
--- NOTE | 2024-05-08 14:28 | CM ---
Chart reviewed: Pt complained to physician of being unable to bear weight on both legs.
PT/OT assessment pending for medical tx clarification.
Watch for IV abx
CM will cont. to follow for d/c planning needs.
Plan: Home w/ needs vs home w/o needs vs rehab
[2024-05-08] MEDS: BENADRYL 25 MG IV (15:23)
[2024-05-08 15:53] VITALS: BP 112/70
[2024-05-08 16:43] LABS: Glucose - Point of Care 132 mg/dl (70-99)
[2024-05-08] MEDS: LOVENOX 40 MG SC (17:19)
[2024-05-08] MEDS: TYLENOL 650 MG PO (17:20)
[2024-05-08] MEDS: VIBRAMYCIN 100 MG PO (20:17)
[2024-05-08 21:34] LABS: Glucose - Point of Care 109 mg/dl (70-99)
[2024-05-08 23:25] VITALS: BP 112/71
[2024-05-09 06:29] LABS: % Basophils 0.4 % (0-2); % Eosinophils 2.4 % (0-6); % Immature Granulocytes 0.4 % (0-0.5); % Lymphocytes 26.4 % (20.5-51.1); % Monocytes 7.4 % (1.7-9.3); Absolute Eosinophils 0.2 10^3/uL (0-0.7); Absolute Monocytes 0.6 10^3/uL (0.1-0.6); Absolute Neutrophils 4.8 10^3/uL (1.4-6.5); Hematocrit 37.7 % (39.0-52.0); Hemoglobin 13.2 g/dL (13.0-18.0); Mean Corpuscular Hgb 28.3 pg (27.0-31.0); Mean Corpuscular Volume 80.9 fL (80.0-94.0); Mean Platelet Volume 9.4 fL (7.4-10.4); Nucleated Red Blood Cells % 0 % (-); Platelet Count 264 10^3/uL (130-400); Red Blood Cell Count 4.66 10^6/uL (4.70-6.10); Red Cell Dist. Width 13.2 % (11.5-14.5); White Blood Cell Count 7.6 10^3/uL (4.8-10.8)
[2024-05-09 06:39] LABS: ALT (SGPT) 51 U/L (0-50); AST (SGOT) 49 U/L (17-59); Albumin 3.9 g/dl (3.5-5.0); Alkaline Phosphatase 205 U/L (38-126); Blood Urea Nitrogen 17 mg/dl (9-20); Calcium 9.1 mg/dl (8.4-10.2); Carbon Dioxide 22 mmol/L (22-30); Chloride 104 mmol/L (98-107); Estimated Creatinine Clearance 102 ml/min; Glucose 143 mg/dl (70-99); Potassium 4.7 mmol/L (3.5-5.1); Sodium 139 mmol/L (135-145); Total Bilirubin 0.5 mg/dl (0.2-1.3); Total Protein 6.8 g/dl (6.3-8.2); eGFR > 60.00
[2024-05-09 07:00] VITALS: BP 87/58
[2024-05-09 07:18] LABS: Ferritin 69.3 ng/ml (17.9-464.0)
[2024-05-09 07:25] LABS: Erythrocyte Sed Rate 57 mm/hour (0-20)
[2024-05-09] MEDS: ANCEF 10 IV ×3 (07:30→23:42)
[2024-05-09] MEDS: VIBRAMYCIN 100 MG PO ×2 (07:31→21:26)
[2024-05-09] MEDS: NOVOLOG FLEXPEN-LOW RESISTANCE SC ×3 (07:34→17:15)
[2024-05-09 07:36] LABS: Glucose - Point of Care 136 mg/dl (70-99)
--- NOTE | 2024-05-09 07:53 | W.PN.UPDATE ---
Update Note
Progress Note Update
This morning patient continues with some swelling and discomfort medial aspect bilateral ankles. Right ankle has some erythema. Erythematous area has moved well within the line of demarcation for erythema yesterday. He is afebrile and WBC C
is normal cladySDF72.20 ESR57. Left ankle has minimal discomfort about the medial malleolus while right ankle has a little more discomfort. His ankle motions slightly limited. No calf discomfort. Distal neurovascular was intact. [facility] ultrasound
from yesterday showed no accumulation left lower extremity but cellulitis while the right lower extremity did reveal cellulitis and small fluid accumulation medially measuring 1.6 x 0.2 x 0.8 cm. There seems to be generalized improvement so
suggest he continue with antibiotics and add in warm compresses. I will discuss ultrasound findings with Dr. Blackwell later this morning. I am not sure if he would recommend potentially aspiration of the fluid right ankle and IR or possibly
irrigation and debridement in the operating room.
--- NOTE | 2024-05-09 08:16 | W.PN.ID1 ---
Addendum entered and electronically signed by Shy Calero MD 05/09/24 14:59:
I saw and evaluated the patient. I reviewed the resident�s note and agree with findings and plan as documented in the resident�s note with the following additions/corrections:
SOAP
S: no further documented fevers
BP overall stable
no events overnight
patient feels strongly that he must also have rash on the left ankle because he has some tenderness over the left Achilles tendon with walking. I do not appreciate a rash today when I use a bright light to examine the area. The right ankle rash
persists but is a bit less erythematous to me
O:
VSS
Physical Exam
General: Comfortable
Respiratory: Clear to auscultation
Cardiac: S1/S2 and Regular Rhythm
GI: Soft, nondistended and Non Tender
Skin: rash: erythema of the right medial malleolus remains within borders outlined yesterday - fading, small fluctuant area I suspect is a bursae, a subtle finding, area is warm not hot; L medial malleolus as well minimal edema but no rash or
erythema
Psych: Calm
Labs and imaging reviewed as listed
A&P
53 year old male with systemic symptoms, neuropathy, and progressive rash
- agree lyme on the differential
- lyme serology sent
- c/w doxycycline
- rash is nonpurulent - continue cefazolin
- leg elevated, rash outlined
- MRI was initially planned by podiatry, patient requesting it, ordered
- follow clinically
Original Note:
Date of Service
Date of Service: May 09, 2024
Today's Communication
Continue doxycycline.
Continue cefazolin.
Monitor for clinical improvement.
Assessment / Plan
Assessment-
Subjective-fever, headaches, inability to bear weight on lower extremities from pain, swelling and erythema.
Objective-no spikes of fever in the ER but otherwise afebrile, blood pressure well-controlled, no tachycardia, no tachypnea. WBC count of 8.7 on 05/06/2020 4-7.6 on 05/08/2024, hemoglobin of 13.2 upon admission continued to remain stable, platelet
count of 254 upon admission. Absolute monocyte count -0.8, HbA1c of 6.9, normal electrolytes, serum creatinine-1.0 on 05/06/2024 that continued to remain stable as of 05/08/2024, elevated transaminases with AST 70, ALT 76, alkaline phosphatase 183.
ALP - 205. MSSA nasal colonization in November/2022.
Ultrasound of lower extremities and peripheral vascular ultrasound as noted above.
Plan-
Blood cultures x 2 obtained at same time showed no growth in first 48 hours.
Currently patient is on vancomycin which is discontinued and patient continues to be on cefazolin-day 3.
Obtain Lyme disease serology, Ehrlichia and Anaplasma PCR.
Obtain inflammatory markers in the am.
Start doxycycline 100 mg twice daily.
Chief Complaint
-: Other
Subjective / Review of Systems
Reports to be feeling better if overall but still complains of subjective fevers, headaches, bilateral ankle and heel pain.
Review of Systems: No Chills, Headache, No Pharyngitis, No Cough, No Chest Pain, No Palpitations, No Abdominal Pain, Nausea, No Dysuria, No Joint Pain and No Skin Rash
Vital Signs / Physical Exam
Vital Signs
Vital Signs
Temp Pulse Resp BP Pulse Ox
98.8 F 81 16 112/71 97
05/08/24 23:25 05/08/24 23:25 05/08/24 23:25 05/08/24 23:25 05/09/24 07:30
Physical Exam
Constitutional: Well Developed
Cardiovascular: Regular Rate and S1/S2; Negative Murmur, Rub or Gallop
Pulmonary: Clear; Negative Wheezes, Rales or Rhonchi
Gastrointestinal: Soft, Non Tender, Non Distended and Normal Bowel Sounds
Extremities: Edema (b/l ankle joints, right>left.)
Musculoskeletal: Joint Swelling
Skin: Warm
Neurological: Awake and Alert
Psychological: Calm
Objective Data
Lab Data
Lab Results
05/09/24 05:48
05/09/24 05:48
ESR 57 mm/hour (0-20) H 05/09/24 05:48
Estimated Creat Clear 102 ml/min 05/09/24 05:48
Lactic Acid 1.2 mmol/L (0.7-2.0) 05/06/24 20:33
Total Bilirubin 0.5 mg/dl (0.2-1.3) 05/09/24 05:48
AST 49 U/L (17-59) 05/09/24 05:48
ALT 51 U/L (0-50) H 05/09/24 05:48
Alkaline Phosphatase 205 U/L (38-126) H 05/09/24 05:48
C-Reactive Protein 63.20 mg/L (0.0-10.00) H 05/09/24 05:48
Most recent labs reviewed.
Microbiology: Report Reviewed
Micro Results:
05/06/24 20:33 Blood Culture - Preliminary
Blood/Venous No Growth in 48 hours- Final report to follow
05/06/24 20:33 Blood Culture - Preliminary
Blood/Venous No Growth in 48 hours- Final report to follow
05/06/24 20:40 MRSA Screen - Final
Nose No Methicillin Resistant Staphylococcus aureus isolated.
Nonvascular lower extremity ultrasound-05/08/2024
Right side-
There is a 1.6 x 0.2 x 0.8 cm small fluid collection within the distal medial soft tissues along the right ankle. There is cutaneous thickening which may represent superficial cellulitis.
Left side-
No discrete abscess or drainable fluid collection. There is skin thickening within the visualized calf, possible superficial cellulitis.
Peripheral vascular ultrasound-05/06/2024-
No evidence for DVT.
--- NOTE | 2024-05-09 09:17 | PN.CDI ---
CDI
- -
CDI:
Physician Documentation Request
Admit Date: 05/06/24 21:02
Dear Doctor Charles,
Please review the following and provide your response in the progress notes.
Clinical Indicators:
- 10/2 PN 'Lower Extremity Cellulitis...Failed Outpatient Antibiotics'
- 'Diabetes Mellitus, Type II'
- HgA1c 6.9
Please clarify the relationship between these conditions:
Yes, _cellulitis__ is related to/associated with/due to _diabetes type II__.
No, _cellulitis__ is not related to/associated with/due to _diabetes type II__ but it is due to ___. (Please specify)
Unable to determine
Use of terms such as suspected, likely, concern for, or probable (associated with a specific diagnosis that is being evaluated, monitored, or treated as if it exists) are acceptable and can be coded in the inpatient setting, when documented at the
time of discharge.
Thank you,
Sonido Nielsen RN
CDI Specialist
Please use your independent medical judgment in providing your response.
--- NOTE | 2024-05-09 09:48 | W.PN.HOSP.TC ---
Addendum entered and electronically signed by Fatuma Soto MD 05/09/24 10:30:
sepsis was present on admission and now resolved
unclear if cellulitis related to DM II
Original Note:
Today's Communication/Plan
-
IV Cefazolin
oral doxy
trial of gabapentin
appreciate consultants
Assessment / Plan
Assessment / Plan
53M with hx DM 2, HTN, HLD presents to the ER with b/l LE pain and swelling with failure to respond to Doxycycline (prescribed 4 days prior). Febrile to 102.1 in ER.
LE US:
IMPRESSION: No evidence of deep venous thrombosis of the lower extremities bilaterally.
Lower Extremity Cellulitis, Right greater than Left - Failed Outpatient Antibiotics
-Continue Ancef
-LE US without abscess
-appreciate Podiatry and ID consults
-LE elevation
-resume doxycycline - as this may be lyme
-will trial gabapentin for possible neuropathy contributing to pain
Abnormal LFTs, suspect drug related
-Hold Crestor
-Antibiotics changed from doxycycline to Ancef
-monitor liver enzymes, consider US tomorrow if remains elevated - patient without pain
Diabetes Mellitus, Type II
-Hold metformin
-Check HgbA1c
-Monitor sugars and continue coverage insulin
Hyperlipidemia
-Hold Crestor
DVT proph: Lovenox
Code Status: Full Code
Anticipated Discharge: 24 - 48 hours
Subjective/Interval History
-
Date of Service: May 09, 2024
erythema improved still present medial right ankle
continues to have pain with standing
Objective Data
-
Labs:
Laboratory Results
05/09/24
05:48
WBC 7.6
Hgb 13.2
Hct 37.7 L
Plt Count 264
Sodium 139
Potassium 4.7
Chloride 104
Carbon Dioxide 22
BUN 17
Creatinine 0.9
Glucose 143 H
Calcium 9.1
Total Bilirubin 0.5
AST 49
ALT 51 H
Alkaline Phosphatase 205 H
Vital Signs:
Vital Signs
Temp Pulse Resp BP Pulse Ox
98.7 F 74 16 87/58 97
05/09/24 07:00 05/09/24 07:00 05/09/24 07:00 05/09/24 07:00 05/09/24 07:30
I&O
05/08/24 05/09/24 05/10/24
06:59 06:59 06:59
Intake Total 1140 / 1140 360 / 360 120 / 120
Balance 1140 / 1140 360 / 360 120 / 120
Review of Systems
-
History Source: Patient
All other systems: Reviewed and negative
Physical Exam
-
General: No Apparent Distress
HEENT: PERRLA
Respiratory: Clear to Auscultation; Negative Wheezes
Cardiac: Regular Rhythm and S1/S2
GI: Soft and Nontender
Musculoskeletal: Other (right posterior ankle erythema/swelling/warmth within borders, left calf erythema improved )
Skin: Warm and Dry; Negative Rash
Neuro: AO x 3
Psych: Agitated
Data Reviewed
-
Diagnostic Radiology: Report Reviewed by me
Labs: Labs Reviewed by me
[2024-05-09] MEDS: NEURONTIN 100 MG PO ×3 (09:55→21:26)
--- NOTE | 2024-05-09 12:07 | CM ---
Patient seen at bedside, patient frustrated with lack of clarity regarding next steps. Patient asking for MRI. CM will update physician and nursing. CM will continue to follow for discharge planning needs.
Plan; home with VN vs SNF
[2024-05-09 14:02] LABS: Glucose - Point of Care 104 mg/dl (70-99)
[2024-05-09 14:59] LABS: Lyme Antibody Screen, EIA Negative (Negative)
[2024-05-09 15:00] VITALS: BP 111/71
[2024-05-09 15:03] LABS: Lyme Antibody Screen, EIA Negative (Negative)
[2024-05-09] MEDS: LOVENOX 40 MG SC (17:08)
[2024-05-09 17:14] LABS: Glucose - Point of Care 184 mg/dl (70-99)
[2024-05-09 21:48] LABS: Glucose - Point of Care 126 mg/dl (70-99)
[2024-05-09 22:29] VITALS: BP 119/78
[2024-05-09] MEDS: TYLENOL 650 MG PO (23:42)
[2024-05-10 07:30] VITALS: BP 124/74
[2024-05-10 08:00] LABS: Glucose - Point of Care 145 mg/dl (70-99)
[2024-05-10] MEDS: NOVOLOG FLEXPEN-LOW RESISTANCE SC ×3 (08:20→18:22)
[2024-05-10] MEDS: ANCEF 10 IV ×3 (08:20→23:18)
[2024-05-10] MEDS: NEURONTIN 100 MG PO (08:21)
[2024-05-10] MEDS: VIBRAMYCIN 100 MG PO ×2 (08:21→21:17)
[2024-05-10] MEDS: FLUSH (NSS) 2 FLUSH IV (08:24)
[2024-05-10] MEDS: TYLENOL 650 MG PO (08:26)
--- NOTE | 2024-05-10 09:48 | W.PN.ID1 ---
Addendum entered and electronically signed by Beverly Rosenthal MD 05/10/24 17:10:
I saw and evaluated the patient. I reviewed the resident�s note and agree with findings and plan as documented in the resident�s note.
# R>L ankle edema/pain
# Bilateral wrist pain
# Oval rash on right bimalleolar and left calf
# GONZALEZ
# Fever
# Elevated ESR, CRP
- Lyme screen neg x 3, 05/03, 05/06, 05/08
-Blood cx's neg
- No significant improvement on doxycycline and cefazolin
Other DDX:
Rheumatological/ autoimmune disorder.
-Ordered GAURANG
? Reactive arthritis.
- No preceding GI/ sxs.
- Ordered urine GC/Chlamydia PCR. Of note pt on doxy which may affect interpretation of result.
? Serum sickness like syndrome
- no inciting meds/vaccines identified.
- Recent travel to [facility] in 03/2024. Prodromal phase of acute hep B may manifest as serum-sickness like illness.
Check Hep B serologies.
Also:
Offered HIV universal screening, which pt consented.
Test for syphilis.
Ordered Quantiferon TB Gold Plus.
Original Note:
Date of Service
Date of Service: May 10, 2024
Today's Communication
Continue cefazolin and doxycycline.
Syphilis, QuantiFERON gold, Neisseria, gonorrhea, HIV, GAURANG testing in the a.m..
Assessment / Plan
Assessment-
Subjective-fever, headaches, inability to bear weight on lower extremities from pain, swelling and erythema. Recent history of travel to [facility] return back to 3 weeks ago.
Objective-no spikes of fever in the ER but otherwise afebrile, blood pressure well-controlled, no tachycardia, no tachypnea. WBC count of 8.7 on 05/06/2020 4-7.6 on 05/08/2024, hemoglobin of 13.2 upon admission continued to remain stable, platelet
count of 254 upon admission. Absolute monocyte count -0.8, HbA1c of 6.9, normal electrolytes, serum creatinine-1.0 on 05/06/2024 that continued to remain stable as of 05/08/2024, elevated transaminases with AST 70, ALT 76, alkaline phosphatase 183.
ALP - 205. MSSA nasal colonization in November/2022. Elevated ESR and CRP-60, ESR-50.
Ultrasound of lower extremities and peripheral vascular ultrasound as noted above.
Plan-
Blood cultures x 2 obtained at same time showed no growth in first 48 hours.
Currently patient is on vancomycin which is discontinued and patient continues to be on cefazolin-day 4.
Ehrlichia and Anaplasma PCR pending. Lyme serology negative.
I will obtain syphilis, QuantiFERON gold, Neisseria, gonorrhea, HIV, GAURANG reflex to other autoimmune antibodies. Reviewed this testing with patient as well and patient consented for obtaining these tests verbally.
doxycycline 100 mg twice daily -day 3.
Chief Complaint
-: Other
Subjective / Review of Systems
Anders reports to feel better with no subjective fevers and decreased episodes of headaches.
Review of Systems: No Chills, No Pharyngitis, No Stiff Neck, No Swollen Lymph Nodes, No Cough, No Sputum Production, No Palpitations, No Abdominal Pain, Joint Pain and Skin Rash
Vital Signs / Physical Exam
Vital Signs
Vital Signs
Temp Pulse Resp BP Pulse Ox
98.3 F 71 16 124/74 98
05/10/24 07:30 05/10/24 07:30 05/10/24 07:30 05/10/24 07:30 05/10/24 07:30
Physical Exam
Constitutional: Comfortable
Cardiovascular: Regular Rate and S1/S2; Negative Murmur, Rub or Gallop
Pulmonary: Clear; Negative Wheezes, Rales or Rhonchi
Gastrointestinal: Soft, Non Tender, Non Distended and Normal Bowel Sounds
Extremities: Negative Edema
Musculoskeletal: Joint Swelling (Erythematous swelling of the right ankle greater than the left ankle, huge plaque-like rash on the lateral side of the left leg.)
Skin: Warm
Psychological: Calm
Objective Data
Lab Data
Lab Results
05/09/24 05:48
05/09/24 05:48
ESR 57 mm/hour (0-20) H 05/09/24 05:48
Estimated Creat Clear 102 ml/min 05/09/24 05:48
Lactic Acid 1.2 mmol/L (0.7-2.0) 05/06/24 20:33
Total Bilirubin 0.5 mg/dl (0.2-1.3) 05/09/24 05:48
AST 49 U/L (17-59) 05/09/24 05:48
ALT 51 U/L (0-50) H 05/09/24 05:48
Alkaline Phosphatase 205 U/L (38-126) H 05/09/24 05:48
C-Reactive Protein 63.20 mg/L (0.0-10.00) H 05/09/24 05:48
Most recent labs reviewed.
Microbiology: Report Reviewed
Micro Results:
05/06/24 20:33 Blood Culture - Preliminary
Blood/Venous No Growth in 72 hours- Final report to follow
05/06/24 20:33 Blood Culture - Preliminary
Blood/Venous No Growth in 72 hours- Final report to follow
05/06/24 20:40 MRSA Screen - Final
Nose No Methicillin Resistant Staphylococcus aureus isolated.
Nonvascular lower extremity ultrasound-05/08/2024
Right side-
There is a 1.6 x 0.2 x 0.8 cm small fluid collection within the distal medial soft tissues along the right ankle. There is cutaneous thickening which may represent superficial cellulitis.
Left side-
No discrete abscess or drainable fluid collection. There is skin thickening within the visualized calf, possible superficial cellulitis.
Peripheral vascular ultrasound-05/06/2024-
No evidence for DVT.
Other: Image Reviewed and Report Reviewed
--- NOTE | 2024-05-10 10:21 | W.PN.HOSP.TC ---
Today's Communication/Plan
-
MRI today
appreciate consultants
Assessment / Plan
Assessment / Plan
53M with hx DM 2, HTN, HLD presents to the ER with b/l LE pain and swelling with failure to respond to Doxycycline (prescribed 4 days prior). Febrile to 102.1 in ER.
LE US:
IMPRESSION: No evidence of deep venous thrombosis of the lower extremities bilaterally.
Sepsis
Lower Extremity Cellulitis, Right greater than Left - Failed Outpatient Antibiotics
-Continue Ancef
-LE US without abscess
-appreciate Podiatry and ID consults
-LE elevation
-resume doxycycline - as this may be lyme
-will trial gabapentin for possible neuropathy contributing to pain - increase dose
-*plan for right ankle MRI today
Abnormal LFTs, suspect drug related
-Hold Crestor
-likel in setting of sepsis - improving - repeat tomorrow
Diabetes Mellitus, Type II
-Hold metformin
-Check HgbA1c
-Monitor sugars and continue coverage insulin
Hyperlipidemia
-Hold Crestor
DVT proph: Lovenox
Code Status: Full Code
Anticipated Discharge: 24 - 48 hours
Subjective/Interval History
-
Date of Service: May 10, 2024
swelling right ankle improving
chills overnight
left calf with redness and some erythema
has intermittent pain still
Objective Data
-
Vital Signs:
Vital Signs
Temp Pulse Resp BP Pulse Ox
98.3 F 71 16 124/74 98
05/10/24 07:30 05/10/24 07:30 05/10/24 07:30 05/10/24 07:30 05/10/24 07:30
I&O
05/09/24 05/10/24 05/11/24
06:59 06:59 06:59
Intake Total 360 / 360 1360 / 1360
Balance 360 / 360 1359
Review of Systems
-
History Source: Patient
All other systems: Reviewed and negative
Physical Exam
-
General: No Apparent Distress
HEENT: PERRLA
Respiratory: Clear to Auscultation; Negative Wheezes
Cardiac: Regular Rhythm and S1/S2
GI: Soft and Nontender
Musculoskeletal: Other (right posterior ankle erythema/swelling/warmth within borders, left calf erythema improved )
Skin: Warm and Dry; Negative Rash
Neuro: AO x 3
Psych: Agitated
Data Reviewed
-
Diagnostic Radiology: Report Reviewed by me
Labs: Labs Reviewed by me
[2024-05-10 12:12] LABS: Glucose - Point of Care 126 mg/dl (70-99)
--- NOTE | 2024-05-10 12:29 | W.PN.UPDATE ---
Update Note
Progress Note Update
Patient seen at bedside
Appreciate ID input
Await MRI to rule out abscess, low suspicision given ultrasound collection did not appear infectious
Likely no podiatric intervention necessary
Will follow
[2024-05-10] MEDS: NEURONTIN 200 MG PO ×2 (16:45→21:17)
[2024-05-10] MEDS: LOVENOX SC ×2 (16:45→16:48)
[2024-05-10 17:22] LABS: Glucose - Point of Care 155 mg/dl (70-99)
[2024-05-10 17:25] VITALS: BP 119/74
[2024-05-10 21:27] LABS: Glucose - Point of Care 170 mg/dl (70-99)
--- NOTE | 2024-05-10 22:00 | PTCARENOTE ---
Patient inquiring about his blood pressures -- patient stating that his blood pressures have been significantly different from right arm to left arm and that is not normal for him. Left arm he states is 'spot on' normal, right arm is reading
significantly lower every time that it is checked. Patient expressing frustration that no one has figured this out for him, and that no one has taken the time to research it for themselves to learn about what the problem is. It does not appear to be
addressed in any notes from physicians at this point -- will pass to dayshift to address with MD in the morning.
Patient is also expressing frustration with the hospital and that he has yet to get his MRI done that has been requested since day of admission. It has been reported that patient was refusing to go to initial MRI as he wanted both legs in entirety
scanned -- patient did not offer this information during this conversation tonight. Patient states that he is disgusted that he has been her for 5 nights and has a family to care for and not one thing has been done to get him closer to being
discharged home. Listened to patient concerns and will address with team in the morning.
[2024-05-10 23:00] VITALS: BP 112/74
[2024-05-11] MEDS: DILAUDID 0.25 MG IV (04:59)
[2024-05-11] MEDS: ROBITUSSIN 100 MG PO ×2 (04:59→16:53)
--- NOTE | 2024-05-11 06:38 | PTCARENOTE ---
Patient observed sleeping INT throughout the evening. Patient c/o severe pain to right inner ankle - provided patient with Dilaudid LUIS MIGUEL, see MAR. Patient stating he has not slept for even one second tonight -- appears to be asleep again at this time
following medication administration. Call loza within reach. Will monitor.
[2024-05-11 08:00] VITALS: BP 111/69
[2024-05-11 08:03] LABS: ALT (SGPT) 31 U/L (0-50); AST (SGOT) 30 U/L (17-59); Albumin 4.1 g/dl (3.5-5.0); Alkaline Phosphatase 159 U/L (38-126); Blood Urea Nitrogen 20 mg/dl (9-20); Calcium 9.4 mg/dl (8.4-10.2); Carbon Dioxide 26 mmol/L (22-30); Chloride 101 mmol/L (98-107); Estimated Creatinine Clearance 92 ml/min; Glucose 143 mg/dl (70-99); Potassium 4.6 mmol/L (3.5-5.1); Sodium 140 mmol/L (135-145); Total Bilirubin 0.6 mg/dl (0.2-1.3); Total Protein 7.3 g/dl (6.3-8.2); eGFR > 60.00
[2024-05-11 08:58] LABS: Glucose - Point of Care 133 mg/dl (70-99)
[2024-05-11] MEDS: NOVOLOG FLEXPEN-LOW RESISTANCE SC ×2 (09:00→18:12)
[2024-05-11] MEDS: NEURONTIN 200 MG PO ×3 (09:01→20:47)
[2024-05-11] MEDS: ANCEF 10 IV ×3 (09:01→23:47)
[2024-05-11] MEDS: VIBRAMYCIN 100 MG PO ×2 (09:03→20:47)
--- NOTE | 2024-05-11 09:26 | W.PN.UPDATE ---
Update Note
Progress Note Update
Patient stable
Awaiting MRI
Low suspicion for podiatric intervention
--- NOTE | 2024-05-11 11:52 | W.PN.HOSP.TC ---
Today's Communication/Plan
-
awaiting MRI
IV Cefazolin, oral Doxycycline
Assessment / Plan
Assessment / Plan
53M with hx DM 2, HTN, HLD presents to the ER with b/l LE pain and swelling with failure to respond to Doxycycline (prescribed 4 days prior). Febrile to 102.1 in ER.
LE US:
IMPRESSION: No evidence of deep venous thrombosis of the lower extremities bilaterally.
Sepsis
Lower Extremity Cellulitis, Right greater than Left - Failed Outpatient Antibiotics
-Continue Ancef
-LE US without abscess
-appreciate Podiatry and ID consults
-LE elevation
-resume doxycycline - as this may be lyme
-will trial gabapentin for possible neuropathy contributing to pain - increase dose to 200mg TID
-*plan for right ankle MRI
Abnormal LFTs, suspect drug related
-in setting of sepsis
-resolved - resume statin
Diabetes Mellitus, Type II
-Hold metformin
-Check HgbA1c
-Monitor sugars and continue coverage insulin
Hyperlipidemia
-resume statin
DVT proph: Lovenox
Code Status: Full Code
Anticipated Discharge: 24 - 48 hours
Subjective/Interval History
-
Date of Service: May 11, 2024
RLE less pain yesterday but back overnight
improved with dilaudid
Objective Data
-
Labs:
Laboratory Results
05/11/24
07:01
Sodium 140
Potassium 4.6
Chloride 101
Carbon Dioxide 26
BUN 20
Creatinine 1.0
Glucose 143 H
Calcium 9.4
Total Bilirubin 0.6
AST 30
ALT 31
Alkaline Phosphatase 159 H
Vital Signs:
Vital Signs
Temp Pulse Resp BP Pulse Ox
98.5 F 74 14 111/69 98
05/11/24 08:00 05/11/24 08:00 05/11/24 08:00 05/11/24 08:00 05/11/24 08:00
I&O
05/10/24 05/11/24 05/12/24
06:59 06:59 06:59
Intake Total 1360 / 1360 860 / 860 940 / 940
Balance 1360 / 1360 860 / 860 940 / 940
Review of Systems
-
History Source: Patient
All other systems: Reviewed and negative
Physical Exam
-
General: No Apparent Distress
HEENT: PERRLA
Respiratory: Clear to Auscultation; Negative Wheezes
Cardiac: Regular Rhythm and S1/S2
GI: Soft and Nontender
Musculoskeletal: Other (right posterior ankle erythema/swelling/warmth within borders, left calf erythema improved )
Skin: Warm and Dry; Negative Rash
Neuro: AO x 3
Psych: Agitated
Data Reviewed
-
Diagnostic Radiology: Report Reviewed by me
Labs: Labs Reviewed by me
[2024-05-11 12:09] LABS: Glucose - Point of Care 231 mg/dl (70-99)
[2024-05-11 12:54] LABS: HIV Combo Negative (Negative)
[2024-05-11] MEDS: GLUCOPHAGE XR EXTENDED RELEASE 1000 MG PO ×2 (12:59→20:47)
[2024-05-11] MEDS: NOVOLOG FLEXPEN-LOW RESISTANCE 2 UNITS SC (13:38)
--- NOTE | 2024-05-11 13:55 | W.PN.ID1 ---
Date of Service
Date of Service: May 11, 2024
Today's Communication
Continue antibiotics.
Assessment / Plan
# R>L ankle edema/pain
# Bilateral wrist pain
# Oval rash on right bimalleolar area and left calf
# GONZALEZ
# Fever
# Elevated ESR, CRP
- Lyme screen neg x 3, 05/03, 05/06, 05/08
- Blood cx's neg
- No significant improvement on doxycycline and cefazolin; will continue for today
Other DDX:
Rheumatological/ autoimmune disorder.
-Ordered GAURANG
? Reactive arthritis.
- No preceding GI/ sxs.
- GC/Chlamydia PCR negative
- HIV negative
? Serum sickness like syndrome
- no inciting meds/vaccines identified.
- Recent travel to [facility] in 03/2024.
Checking Hep B serologies.
Also:
Test for syphilis.
Ordered Quantiferon TB Gold Plus.
Await MRI
����������������������������������������������������������
Chief Complaint
-: Other (B/L ankle erythroderma)
Subjective / Review of Systems
Patient seen and examined. Reports ongoing redness of the bilateral ankles, along with internal joint discomfort.
Review of Systems: No Fever and No Chills
Vital Signs / Physical Exam
Vital Signs
Vital Signs
Temp Pulse Resp BP Pulse Ox
98.5 F 74 14 111/69 98
05/11/24 08:00 05/11/24 08:00 05/11/24 08:00 05/11/24 08:00 05/11/24 08:00
Physical Exam
Constitutional: No Acute Distress, Comfortable and Non-toxic
Eyes: Sclera Anicteric
Cardiovascular: S1/S2; Negative S3/S4
Pulmonary: Non Labored; Negative Wheezes
Gastrointestinal: Soft and Non Tender
Extremities: Edema (B/L ankles (R>L)) and Erythema (B/L ankle area (R>L)); Negative Calf Swelling
Neurological: Awake and Alert
Psychological: Calm
Objective Data
Lab Data
Lab Results
05/09/24 05:48
05/11/24 07:01
ESR 57 mm/hour (0-20) H 05/09/24 05:48
Estimated Creat Clear 92 ml/min 05/11/24 07:01
Lactic Acid 1.2 mmol/L (0.7-2.0) 05/06/24 20:33
Total Bilirubin 0.6 mg/dl (0.2-1.3) 05/11/24 07:01
AST 30 U/L (17-59) 05/11/24 07:01
ALT 31 U/L (0-50) 05/11/24 07:01
Alkaline Phosphatase 159 U/L (38-126) H 05/11/24 07:01
C-Reactive Protein 52.20 mg/L (0.0-10.00) H 05/11/24 07:01
Most recent labs reviewed.
Micro Results:
05/10/24 16:27 Chlamydia trachomatis (PCR) - Final
Urine Neisseria gonorrhoeae (PCR) - Final
05/06/24 20:33 Blood Culture - Preliminary
Blood/Venous No Growth in 4 days- Final report to follow
05/06/24 20:33 Blood Culture - Preliminary
Blood/Venous No Growth in 4 days- Final report to follow
05/06/24 20:40 MRSA Screen - Final
Nose No Methicillin Resistant Staphylococcus aureus isolated.
Nonvascular lower extremity ultrasound-05/08/2024
Right side-
There is a 1.6 x 0.2 x 0.8 cm small fluid collection within the distal medial soft tissues along the right ankle. There is cutaneous thickening which may represent superficial cellulitis.
Left side-
No discrete abscess or drainable fluid collection. There is skin thickening within the visualized calf, possible superficial cellulitis.
Peripheral vascular ultrasound-05/06/2024-
No evidence for DVT.
[2024-05-11 16:00] VITALS: BP 142/84
[2024-05-11] MEDS: LOVENOX SC (16:28)
[2024-05-11 17:56] LABS: Glucose - Point of Care 105 mg/dl (70-99)
[2024-05-11] MEDS: TORADOL 15 MG IV (18:16)
[2024-05-11] MEDS: CRESTOR 10 MG PO (20:47)
[2024-05-11 23:00] VITALS: BP 110/74
[2024-05-11] MEDS: FLUSH (NSS) 2 FLUSH IV (23:47)
[2024-05-12] MEDS: TORADOL IV (03:45)
[2024-05-12 08:25] VITALS: BP 111/75
[2024-05-12 09:10] LABS: Glucose - Point of Care 138 mg/dl (70-99)
[2024-05-12] MEDS: NOVOLOG FLEXPEN-LOW RESISTANCE SC ×2 (09:17→13:37)
[2024-05-12] MEDS: GLUCOPHAGE XR EXTENDED RELEASE 1000 MG PO (10:01)
[2024-05-12] MEDS: NEURONTIN 200 MG PO (10:01)
[2024-05-12] MEDS: ANCEF 10 IV (10:01)
[2024-05-12] MEDS: VIBRAMYCIN 100 MG PO (10:05)
[2024-05-12] MEDS: TORADOL 15 MG IV (10:05)
--- NOTE | 2024-05-12 12:00 | W.PN.HOSP.TC ---
Today's Communication/Plan
-
anticipate discharge today with rheumatologic follow up
Assessment / Plan
Assessment / Plan
53M with hx DM 2, HTN, HLD presents to the ER with b/l LE pain and swelling with failure to respond to Doxycycline (prescribed 4 days prior). Febrile to 102.1 in ER.
LE US:
IMPRESSION: No evidence of deep venous thrombosis of the lower extremities bilaterally.
LE MRI:
IMPRESSION:
Mild subcutaneous edema about the ankle suggesting cellulitis. No discrete abscess. No osteomyelitis.
Moderate posterior tibialis tenosynovitis.
Sepsis
RLE Ankle swelling; left calf erythema/swelling
B/L foot pain
-LE US without abscess; MRI obtained 05/12 results above (was delayed this week with one machine down)
-appreciate Podiatry and ID consults
-LE elevation
-clinical presentation has improved on cefazolin/doxy but patient continues to have pain on standing
-trialing gabapentin for possible neuropathy contributing to pain - increase dose to 200mg TID
-motrin PRN
-rheum follow up on DC - I sent a TT message to Dr. Rudolph
Abnormal LFTs, suspect drug related
-in setting of sepsis
-resolved - resume statin
Diabetes Mellitus, Type II
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
-Check HgbA1c
-Monitor sugars and continue coverage insulin
Hyperlipidemia
-resume statin
DVT proph: Lovenox
Code Status: Full Code
Anticipated Discharge: Within 24 hours
Subjective/Interval History
-
Date of Service: May 12, 2024
right ankle redness much improved today
he continues to have pain on standing
Objective Data
-
Vital Signs:
Vital Signs
Temp Pulse Resp BP Pulse Ox
98.8 F 83 18 111/75 98
05/12/24 08:25 05/12/24 08:25 05/12/24 08:25 05/12/24 08:25 05/12/24 08:25
I&O
05/11/24 05/12/24 05/13/24
06:59 06:59 06:59
Intake Total 860 / 860 2970 / 2970
Balance 860 / 860 2970 / 2970
Review of Systems
-
History Source: Patient
All other systems: Reviewed and negative
Physical Exam
-
General: No Apparent Distress
HEENT: PERRLA
Respiratory: Clear to Auscultation; Negative Wheezes
Cardiac: Regular Rhythm and S1/S2
GI: Soft and Nontender
Musculoskeletal: Other (right posterior ankle erythema/swelling/warmth nearly resolved; left calf without significant erythema )
Skin: Warm and Dry; Negative Rash
Neuro: AO x 3
Psych: Calm
Data Reviewed
-
Diagnostic Radiology: Report Reviewed by me
Labs: Labs Reviewed by me
[2024-05-12 12:15] LABS: Glucose - Point of Care 152 mg/dl (70-99)
--- NOTE | 2024-05-12 13:34 | W.DS.TRANS ---
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
-
Discharge Instructions:
Discharge Diagnosis/Procedures right ankle swelling, cellulitis, possibly lyme
disease versus rheumatologic disorder
Diet Diabetic, Carb Controlled
Activity As tolerated
Driving Restrictions As prior to admission
Bathing Restrictions None
Instructions:
Stand-Alone Forms:
Changes to Home Medications: No
Discharge Medications:
DC Medications w/original date entered in [employer]
acetaminophen 325 mg tablet (Tylenol) 650 mg PO Q6HPRN PRN mild pain 05/06/24
metformin 500 mg tablet,extended release 24 hr 1,000 mg PO BID Diabetes 05/06/24
rosuvastatin 10 mg tablet 10 mg PO HS High Cholesterol 05/06/24
tramadol 50 mg tablet 50 mg PO Q8HPRN PRN moderate pain 05/06/24
cephalexin 500 mg capsule 500 mg PO QID 3 days #12 caps 05/12/24
doxycycline hyclate 100 mg capsule 100 mg PO BID Infection #6 caps 05/12/24
gabapentin 100 mg capsule 200 mg (2 x 100 mg) PO TID #180 caps 05/12/24
Home Medication Changes
doxy extended to 14 day course
3 more days keflex
Gabapentin
Pending Results: Yes
Additional Pending Results:
Rheumatologic work-up
--- NOTE | 2024-05-12 13:36 | W.DCSUMMARY ---
Discharge Summary
Discharge Data
Date of Admission: 05/06/24
Date of Discharge: 05/12/24
-
Pending Results: No
Hospital Course
Discharging Physician : Dr. Fatuma Soto
Disposition : Home
Primary care physician : ANGEL Gutierrez
Principal Discharge diagnosis : right ankle swelling, cellulitis, possible Lyme disease versus rheumatologic disorder
Hospital Course :
Mr. Pro Mills is a 53M with hx DM 2, HTN, HLD presents to the ER with b/l LE pain and swelling with failure to respond to Doxycycline (prescribed 4 days prior). He describes that symptoms began with b/l foot pain on standing and then
progressed to swelling and erythema around ankle and calf. Febrile to 102.1 in ER. He was admitted for treatment LE cellulitis. He was started on IV Cefazolin. Exam with development more prominent erythema and swelling along right ankle and left
calf. Podiatry and ID involved with care. He was kept on IV Cefazolin for cellulitis and Doxycycline resumed for possible Lyme Disease. LE US without DVT, US without definitive abscess. MRI with mild edema suggesting cellulitis, no osteomyelitis
and moderate posterior tibialis tenosynovitis.
Both his right ankle and left calf erythema and swelling have improved significantly on Cefazolin and Doxycycline. However, patient continues to have significant foot pain with standing. He was started on Gabapentin for possible neuropathy with
some relief. He is told he can take Motrin as needed. At this point, work-up complete in hospital. Per Podiatry and ID, no further intervention or prolonged antibiotic course necessary with MRI findings. Rheumatologic panel ordered by ID and
pending. He feels ready for discharge and will follow up closely with outpatient physicians. He is referred to Rheumatology.
Time spent on discharge was 35 minutes.
Important imaging findings :
LE US:
IMPRESSION: No evidence of deep venous thrombosis of the lower extremities bilaterally.
LE US:
IMPRESSION:
There is a 1.6 x 0.2 x 0.8 cm small fluid collection within the distal medial soft tissues along the right ankle. There is cutaneous thickening which may represent superficial cellulitis.
LE MRI:
IMPRESSION:
Mild subcutaneous edema about the ankle suggesting cellulitis. No discrete abscess. No osteomyelitis.
Moderate posterior tibialis tenosynovitis.
Procedure findings :
Discharge Plan
-
Patient Disposition: Home (Routine Discharge)
Discharge Diagnosis/Procedures: right ankle swelling, cellulitis, possible Lyme disease versus rheumatologic disorder
Diet: Diabetic, Carb Controlled
Activity: As tolerated
Driving Restrictions: As prior to admission
Bathing Restrictions: None
Referrals:
Amado Gutierrez CRNP [Family Provider] - in less than 1 week
Buzz Rudolph MD [Consulting Staff] - in one to two weeks
Frank Blackwell DPM [Active] - in one to two weeks
Additional Discharge Medication Instructions: Complete your course of Doxycycline, take for a total of 2 weeks; I have prescribed 3 additional days
You have completed 7 days of Cefazolin in the hospital for treatment of cellulitis; I am discharging you on 3 additional days to complete a 10 day course
Take Motrin as needed for pain (with food). This helps with inflammation
You are prescribed Gabapentin to help with nerve related pain - discuss further dosing with your outpatient physicians.
You are referred to Rheumatology. Follow up with your PCP, ANGEL Gutierrez and Podiatry, Dr. Blackwell.
Prescriptions:
New
gabapentin 100 mg Capsule
200 mg PO TID Qty: 180 0RF
cephalexin 500 mg capsule
500 mg PO QID 3 Days Qty: 12 0RF
Continued
acetaminophen [Tylenol] 325 mg Tablet
650 mg PO Q6HPRN PRN (Reason: mild pain)
tramadol 50 mg Tablet
50 mg PO Q8HPRN PRN (Reason: moderate pain)
metformin 500 mg Tablet Extended Release 24 Hr
1,000 mg PO BID
rosuvastatin 10 mg Tablet
10 mg PO HS
doxycycline hyclate 100 mg Capsule
100 mg PO BID Qty: 6 0RF
Patient Comments:
05/06/24: filled 05/03/24, to take for 10 days
Discharge Orders:
Discharge Patient (As Directed); Ordered 05/12/24
Ordered By: Fatuma Soto
Discharge Date and Time
Print Language: [place]
--- NOTE | 2024-05-12 13:44 | CM ---
Plan: discharge to home today; no needs; will transport home
[2024-05-12 14:51] VITALS: BP 124/76
[2024-05-13 05:36] LABS: Quantiferon Mitogen minus NIL 9.98 IU/mL; Quantiferon NIL 0.02 IU/mL; Quantiferon Plus TB1 minus NIL 0.01 IU/mL (<=0.34); Quantiferon Plus TB2 minus NIL 0.03 IU/mL (<=0.34); Quantiferon TB Gold Plus Negative (Negative)
[2024-05-13 08:50] LABS: ANA, IgG Reflex to HEp-2 None Detected (None Detected)
[2024-05-13 19:02] LABS: Hepatitis B Surface Antigen Negative (Negative)
[2024-05-13 19:20] LABS: Hepatitis B Core Ab, Total Negative (Negative); Hepatitis C Antibody Negative (Negative)
[2024-05-14 07:51] LABS: Parvo B19 Ab, IgM 0.27 IV (<=0.89)
[2024-05-14 11:18] LABS: Syphilis/T. pallidum Ab Reflex Negative (Negative)
== END 2024-05-12 14:53 | disposition home or self-care (01) | DRG 872 ==
LOC: 3 WEST ACU 21:02
PROVIDERS: Clinical Nurse Specialist Family Health; Emergency Medicine; Internal Medicine Infectious Disease; Physician Assistant Medical; Student in an Organized Health Care Education/Training Program; ADMITTING PHYSICIAN Internal Medicine; ATTENDING PHYSICIAN Student in an Organized Health Care Education/Training Program; CONSULT PHYSICIAN Student in an Organized Health Care Education/Training Program; EMERGENCY PHYSICIAN Emergency Medicine; FAMILY PHYSICIAN Nurse Practitioner Family
DX: A41.9 Sepsis, unspecified organism (principal); L03.115 Cellulitis of right lower limb; L03.116 Cellulitis of left lower limb; E11.628 Type 2 diabetes mellitus with other skin complications; I10 Essential (primary) hypertension; E78.00 Pure hypercholesterolemia, unspecified; R79.89 Other specified abnormal findings of blood chemistry; Z79.84 Long term (current) use of oral hypoglycemic drugs
CPT/HCPCS: 73723; 76882; 80053; 82728; 82962; 83036; 83605; 84550; 85025; 85027; 85652; 86038; 86140; 86480; 86618; 86704; 86705; 86747; 86780; 86803; 87040; 87070; 87340; 87389; 87491; 87591; 87811; 93970; 99285; A9575

== ENCOUNTER → 2024-05-17 16:02 | Outpatient (REF) | payer BC, SELFPAY ==
[2024-05-17 17:17] LABS: Hemoglobin 12.7 g/dL (13.0-18.0); Mean Corp Hgb Conc. 33.4 g/dL (33.0-37.0); Mean Corpuscular Hgb 27.8 pg (27.0-31.0); Mean Corpuscular Volume 83.2 fL (80.0-94.0); Mean Platelet Volume 9.4 fL (7.4-10.4); Platelet Count 398 10^3/uL (130-400); Red Blood Cell Count 4.57 10^6/uL (4.70-6.10); Red Cell Dist. Width 12.9 % (11.5-14.5); White Blood Cell Count 7.8 10^3/uL (4.8-10.8)
[2024-05-17 17:31] LABS: ALT (SGPT) 37 U/L (0-50); AST (SGOT) 31 U/L (17-59); Albumin 4.1 g/dl (3.5-5.0); Alkaline Phosphatase 145 U/L (38-126); Blood Urea Nitrogen 17 mg/dl (9-20); Calcium 9.7 mg/dl (8.4-10.2); Carbon Dioxide 27 mmol/L (22-30); Chloride 104 mmol/L (98-107); Glucose 126 mg/dl (70-99); Potassium 4.6 mmol/L (3.5-5.1); Sodium 142 mmol/L (135-145); Total Bilirubin 0.2 mg/dl (0.2-1.3); Total Protein 7.3 g/dl (6.3-8.2); Uric Acid 2.6 mg/dl (3.5-8.5); eGFR > 60.00
[2024-05-17 17:39] LABS: Erythrocyte Sed Rate 66 mm/hour (0-20)
[2024-05-19 18:48] LABS: HLA-B27 Negative (Negative)
[2024-05-19 19:51] LABS: Angiotensin-1-converting Enzym 36 U/L (16-85)
[2024-05-20 01:13] LABS: CCP Antibody IgG/IgA 4 Units (0-19)
== END ==
LOC: HWRAD 16:02
PROVIDERS: ATTENDING PHYSICIAN Internal Medicine Rheumatology; FAMILY PHYSICIAN Nurse Practitioner Family
DX: M25.50 Pain in unspecified joint (principal); R05.9 Cough, unspecified; L03.90 Cellulitis, unspecified; L40.52 Psoriatic arthritis mutilans; M05.9 Rheumatoid arthritis with rheumatoid factor, unspecified; R22.43 Localized swelling, mass and lump, lower limb, bilateral
CPT/HCPCS: 36415; 71046; 80053; 82164; 84550; 85027; 85652; 86140; 86200; 86430; 86812

== ENCOUNTER → 2024-05-27 12:49 | Outpatient (REF) | payer BC, SELFPAY ==
[2024-05-27 17:59] LABS: Erythrocyte Sed Rate 22 mm/hour (0-20)
== END ==
LOC: HWLAB 12:49
PROVIDERS: ATTENDING PHYSICIAN Internal Medicine Rheumatology; FAMILY PHYSICIAN Nurse Practitioner Family
DX: M25.50 Pain in unspecified joint (principal); R22.43 Localized swelling, mass and lump, lower limb, bilateral
CPT/HCPCS: 36415; 85652; 86140

== ENCOUNTER → 2024-07-19 08:46 | Outpatient (REF) | payer BC, SELFPAY ==
[2024-07-19 11:25] LABS: % Basophils 0.3 % (0-2); % Eosinophils 1.1 % (0-6); % Immature Granulocytes 0.4 % (0-0.5); % Lymphocytes 32.4 % (20.5-51.1); % Monocytes 7.1 % (1.7-9.3); % Neutrophils 58.7 % (42.2-75.2); Absolute Eosinophils 0.1 10^3/uL (0-0.7); Absolute Lymphocytes 2.9 10^3/uL (1.2-3.4); Absolute Monocytes 0.6 10^3/uL (0.1-0.6); Absolute Neutrophils 5.3 10^3/uL (1.4-6.5); Hematocrit 41.2 % (39.0-52.0); Hemoglobin 13.5 g/dL (13.0-18.0); Mean Corp Hgb Conc. 32.8 g/dL (33.0-37.0); Mean Corpuscular Hgb 27.8 pg (27.0-31.0); Mean Corpuscular Volume 84.8 fL (80.0-94.0); Nucleated Red Blood Cells % 0 % (-); Platelet Count 241 10^3/uL (130-400); Red Blood Cell Count 4.86 10^6/uL (4.70-6.10); Red Cell Dist. Width 14.6 % (11.5-14.5)
[2024-07-19 12:23] LABS: ALT (SGPT) 26 U/L (0-50); AST (SGOT) 22 U/L (17-59); Albumin 4.4 g/dl (3.5-5.0); Alkaline Phosphatase 86 U/L (38-126); Blood Urea Nitrogen 20 mg/dl (9-20); Calcium 9.6 mg/dl (8.4-10.2); Carbon Dioxide 28 mmol/L (22-30); Chloride 102 mmol/L (98-107); Glucose 195 mg/dl (70-99); Potassium 3.8 mmol/L (3.5-5.1); Sodium 139 mmol/L (135-145); Total Bilirubin 0.5 mg/dl (0.2-1.3); eGFR > 60.00
[2024-07-19 12:26] LABS: C-Reactive Protein < 5.00 mg/L (0.0-10.00)
[2024-07-19 12:33] LABS: Erythrocyte Sed Rate 9 mm/hour (0-20)
[2024-07-19 12:55] LABS: Hepatitis B Surface Antigen Negative (Negative)
[2024-07-19 13:13] LABS: Hepatitis B Core Ab, Total Negative (Negative); Hepatitis B Surface Antibody Negative; Hepatitis C Antibody Negative (Negative)
[2024-07-21 16:25] LABS: Quantiferon Mitogen minus NIL 9.93 IU/mL; Quantiferon NIL 0.07 IU/mL; Quantiferon Plus TB1 minus NIL 0.04 IU/mL (<=0.34); Quantiferon Plus TB2 minus NIL 0.05 IU/mL (<=0.34); Quantiferon TB Gold Plus Negative (Negative)
== END ==
LOC: HWLAB 08:46
PROVIDERS: ATTENDING PHYSICIAN Internal Medicine Rheumatology; FAMILY PHYSICIAN Nurse Practitioner Family
DX: M25.50 Pain in unspecified joint (principal); R22.43 Localized swelling, mass and lump, lower limb, bilateral; Z11.59 Encounter for screening for other viral diseases
CPT/HCPCS: 36415; 80053; 85025; 85652; 86140; 86480; 86704; 86706; 86803; 87340

== ENCOUNTER → 2024-09-19 14:25 | Outpatient (REF) | payer BC, SELFPAY | LOC: HWRAD 14:25 | PROVIDERS: ATTENDING PHYSICIAN Nurse Practitioner Family | DX: R22.9 Localized swelling, mass and lump, unspecified (principal) | CPT/HCPCS: 76705 ==

== ENCOUNTER → 2024-10-02 08:22 | Outpatient (REF) | payer BC, SELFPAY ==
[2024-10-02 10:06] LABS: % Basophils 0.6 % (0-2); % Eosinophils 2.5 % (0-6); % Immature Granulocytes 0.2 % (0-0.5); % Monocytes 10.3 % (1.7-9.3); % Neutrophils 47.4 % (42.2-75.2); Absolute Eosinophils 0.1 10^3/uL (0-0.7); Absolute Monocytes 0.5 10^3/uL (0.1-0.6); Absolute Neutrophils 2.5 10^3/uL (1.4-6.5); Hematocrit 37.6 % (39.0-52.0); Hemoglobin 12.9 g/dL (13.0-18.0); Mean Corp Hgb Conc. 34.3 g/dL (33.0-37.0); Mean Corpuscular Hgb 27.9 pg (27.0-31.0); Mean Corpuscular Volume 81.4 fL (80.0-94.0); Mean Platelet Volume 10.1 fL (7.4-10.4); Nucleated Red Blood Cells % 0 % (-); Platelet Count 203 10^3/uL (130-400); Red Blood Cell Count 4.62 10^6/uL (4.70-6.10); Red Cell Dist. Width 14.3 % (11.5-14.5); White Blood Cell Count 5.2 10^3/uL (4.8-10.8)
[2024-10-02 10:31] LABS: ALT (SGPT) 29 U/L (0-50); AST (SGOT) 29 U/L (17-59); Albumin 4.1 g/dl (3.5-5.0); Alkaline Phosphatase 86 U/L (38-126); Blood Urea Nitrogen 13 mg/dl (9-20); Calcium 9.2 mg/dl (8.4-10.2); Carbon Dioxide 25 mmol/L (22-30); Chloride 104 mmol/L (98-107); Glucose 138 mg/dl (70-99); HDL Cholesterol 33 mg/dl; LDL Cholesterol, Calculated 34 mg/dl; Potassium 4.1 mmol/L (3.5-5.1); Sodium 138 mmol/L (135-145); Total Bilirubin 0.7 mg/dl (0.2-1.3); Total Cholesterol 114 mg/dl (50-199); Total Protein 6.7 g/dl (6.3-8.2); Triglyceride 237 mg/dl (10-149); Very Low Density Lipoprotein 47 mg/dl (0-30); eGFR > 60.00
[2024-10-02 10:40] LABS: Microalbumin, Random Urine 0.7 mg/dl (0.6-1.7)
[2024-10-02 10:41] LABS: Microalbumin/creatinine Ratio 4.5 mg/g
[2024-10-02 11:00] LABS: PSA, Total - Screen 0.83 ng/ml (0.0-4.0); TSH Reflex To Free T4 2.22 uIU/ml (0.47-4.68)
[2024-10-02 14:17] LABS: Erythrocyte Sed Rate 5 mm/hour (0-20)
[2024-10-02 14:18] LABS: Glycohemoglobin (HgbA1c) 7.6 % (4.0-5.6)
[2024-10-03 18:16] LABS: Hepatitis B Surface Antigen Negative (Negative)
[2024-10-03 18:34] LABS: Hepatitis B Core Ab, Total Negative (Negative); Hepatitis B Surface Antibody Negative; Hepatitis C Antibody Negative (Negative)
[2024-10-04 22:56] LABS: Quantiferon Mitogen minus NIL 9.95 IU/mL; Quantiferon NIL 0.05 IU/mL; Quantiferon Plus TB1 minus NIL 0.04 IU/mL (<=0.34); Quantiferon Plus TB2 minus NIL 0.09 IU/mL (<=0.34); Quantiferon TB Gold Plus Negative (Negative)
== END ==
LOC: HWLAB 08:22
PROVIDERS: ATTENDING PHYSICIAN Internal Medicine Rheumatology; FAMILY PHYSICIAN Nurse Practitioner Family
DX: R22.9 Localized swelling, mass and lump, unspecified (principal); E11.9 Type 2 diabetes mellitus without complications; R21 Rash and other nonspecific skin eruption; E78.1 Pure hyperglyceridemia; Z12.5 Encounter for screening for malignant neoplasm of prostate; Z00.00 Encounter for general adult medical examination without abnormal findings; M25.50 Pain in unspecified joint; R22.43 Localized swelling, mass and lump, lower limb, bilateral; Z11.59 Encounter for screening for other viral diseases
CPT/HCPCS: 36415; 80053; 80061; 82043; 82570; 83036; 84443; 85025; 85652; 86140; 86480; 86704; 86705; 86706; 86803; 87340; G0103

== ENCOUNTER → 2025-02-14 08:42 | Outpatient (REF) | payer BC, SELFPAY ==
[2025-02-14 11:12] LABS: Hematocrit 38.9 % (39.0-52.0); Hemoglobin 12.9 g/dL (13.0-18.0); Mean Corp Hgb Conc. 33.2 g/dL (33.0-37.0); Mean Corpuscular Volume 82.4 fL (80.0-94.0); Nucleated Red Blood Cells % 0 % (-); Platelet Count 199 10^3/uL (130-400); Red Cell Dist. Width 14.1 % (11.5-14.5)
[2025-02-14 11:25] LABS: ALT (SGPT) 23 U/L (0-50); AST (SGOT) 24 U/L (17-59); Albumin 4.4 g/dl (3.5-5.0); Alkaline Phosphatase 78 U/L (38-126); Blood Urea Nitrogen 14 mg/dl (9-20); C-Reactive Protein < 5.00 mg/L (0.0-10.00); Calcium 9.1 mg/dl (8.4-10.2); Carbon Dioxide 25 mmol/L (22-30); Chloride 108 mmol/L (98-107); Glucose 125 mg/dl (70-99); Potassium 4.2 mmol/L (3.5-5.1); Sodium 139 mmol/L (135-145); Total Protein 7.0 g/dl (6.3-8.2); eGFR > 60.00
== END ==
LOC: HWLAB 08:42
PROVIDERS: ATTENDING PHYSICIAN Internal Medicine Rheumatology; FAMILY PHYSICIAN Nurse Practitioner Family
DX: M25.50 Pain in unspecified joint (principal); R22.43 Localized swelling, mass and lump, lower limb, bilateral
CPT/HCPCS: 36415; 80053; 85025; 85652; 86140